=== PATIENT | male | born 1935 | race Caucasian/White ===

== ENCOUNTER → 2016-08-22 | Outpatient (CLI) | payer MEDICARE, BC ==
[2016-08-22 14:54] LABS: Blood Urea Nitrogen 14 mg/dL (9-20); Lithium 0.6 mmol/L; Non-African American GFR(MDRD) >60 (>60 ml/min/1.73 sqM)
== END | disposition home or self-care (01) ==
LOC: LABWHC1 10:53
PROVIDERS: ATTEND Psychiatry & Neurology Psychiatry
DX: F31.74 Bipolar disorder, in full remission, most recent episode manic (principal)
CPT/HCPCS: 36415; 80178; 82565; 84443; 84520

== ENCOUNTER → 2016-11-23 | Outpatient (CLI) | payer MEDICARE, BC | END | disposition home or self-care (01) | LOC: LABWHC1 11:06 | PROVIDERS: ATTEND Psychiatry & Neurology Psychiatry | DX: F31.74 Bipolar disorder, in full remission, most recent episode manic (principal) | CPT/HCPCS: 36415; 80178 ==

== ENCOUNTER → 2017-05-17 | Outpatient (CLI) | payer MEDICARE, BC | END | disposition home or self-care (01) | LOC: LABWHC1 10:45 | PROVIDERS: ATTEND Urology | DX: R97.20 Elevated prostate specific antigen [PSA] (principal) | CPT/HCPCS: 36415; 84153 ==

== ENCOUNTER 2017-05-21 00:03 | Inpatient (IN) | payer MEDICARE, BC ==
[2017-05-21] MEDS ORDERED: SODIUM CHLORIDE 0.9% 1,000 ML IV STA (00:18)
[2017-05-21] MEDS ORDERED: METOCLOPRAMIDE 5 MG/ML 2 ML VIAL IVP STA (00:18)
[2017-05-21] MEDS ORDERED: RX INFO: IV CONTRAST WAS GIVEN 1 EACH MISC MISCELLANE PRN (00:19)
[2017-05-21] MEDS ORDERED: DICYCLOMINE 20 MG TAB PO STA (00:19)
[2017-05-21 00:33] LABS: Basophils # (A) 0.1 k/uL (0-0.2); Basophils % (A) 1 %; Eosinophils # (A) 0.2 k/uL (0-0.7); Eosinophils % (A) 2 %; HCT 29.2 % (39.0-53.0); HGB 9.5 gm/dL (13.0-17.5); Lymphocytes # (A) 1.1 k/uL (1.0-4.8); Lymphocytes % (A) 10 %; MCH 31.8 pg (25.0-35.0); MCHC 32.5 g/dL (31.0-37.0); MCV 97.7 fL (80.0-100.0); Mean Platelet Volume 6.9; Monocytes # (A) 0.4 k/uL (0-1.0); Monocytes % (A) 4 %; Neutrophils # (A) 8.9 k/uL (1.3-7.7); Neutrophils % (A) 82 %; Platelet Count 320 k/uL (150-450); RBC 2.99 m/uL (4.30-5.90); RDW 13.3 % (11.5-15.5); WBC 10.9 k/uL (3.8-10.6)
[2017-05-21 00:42] LABS: ALT 86 U/L (21-72); AST 41 U/L (17-59); Alkaline Phosphatase 94 U/L (38-126); Amylase <30 U/L (30-110); Anion Gap 7 mmol/L; Blood Urea Nitrogen 23 mg/dL (9-20); Calcium 8.7 mg/dL (8.4-10.2); Carbon Dioxide 26 mmol/L (22-30); Chloride 104 mmol/L (98-107); Glucose 165 mg/dL (74-99); Lipase 77 U/L (23-300); Potassium 4.5 mmol/L (3.5-5.1); Sodium 137 mmol/L (137-145); Total Bilirubin 0.3 mg/dL (0.2-1.3); Total Protein 4.9 g/dL (6.3-8.2)
--- NOTE | 2017-05-21 01:48 | CT ---
EXAM: CT Abdomen and Pelvis With Intravenous Contrast CLINICAL HISTORY: Reason: Pain TECHNIQUE: Axial computed tomography images of the abdomen and pelvis with intravenous contrast. CTDI is 10.8 mGy and DLP is 850.7 mGy-cm. This CT exam was performed using one or more of the following dose reduction techniques: automated exposure control, adjustment of the mA and/or kV according to patient size, and/or use of iterative reconstruction technique. Coronal and sagittal reformatted images were created and reviewed. COMPARISON: No relevant prior studies available. FINDINGS: Lower thorax: 5 mm ovoid nodularity within the subpleural right lower lung lobe. ABDOMEN: Liver: Scattered hepatic hypodensities, likely representing metastatic lesions, with slightly infiltrative appearance in the left lobe. Gallbladder and bile ducts: Majority of the pancreatic parenchyma is atrophic, with ductal dilatation to an area of ill-defined hypo-density at the pancreatic head, concerning for mass. This process narrows the celiac trunk and proximal branches and partially encases the superior mesenteric artery. Approximate size is 3.0 x 2.9 cm. Likely involvement of the adjacent duodenal wall. Component of biliary obstruction is also likely present with dilatation up to 14 mm guarding the common bile duct. No calcified stones. Pancreas: See above. Spleen: Unremarkable. No splenomegaly. Adrenals: Unremarkable. No mass. Kidneys and ureters: Unremarkable. No solid mass. No hydronephrosis. Stomach and bowel: Colonic diverticulosis. No evidence for acute diverticulitis at this time. Segments of mild colonic wall thickening are likely related to peristalsis and associated underdistention. No evidence for small bowel obstruction. Appendix: No findings to suggest acute appendicitis. PELVIS: Bladder: Prostate enlargement to a transverse length of 6.3 cm. This protrudes into the inferior/posterior urinary bladder, with adjacent bladder wall thickening. Reproductive: See above. ABDOMEN and PELVIS: Intraperitoneal space: Unremarkable. No free air. No significant fluid collection. Bones/joints: S-shaped scoliosis of the spine with multilevel disc space height loss and osteophytosis. Vertebral hemangiomas. No acute fracture. No dislocation. Soft tissues: Unremarkable. Vasculature: See above. Lymph nodes: Unremarkable. No enlarged lymph nodes. IMPRESSION: 1. Ill-defined hypoattenuating lesion associated with the pancreatic head as above, most concerning for adenocarcinoma, with upstream pancreatic ductal dilatation and printable atrophy. There is also likely component of obstruction of the common bile duct. Multifocal hepatic lesions could represent component of metastatic disease. This appears to involve the adjacent duodenal wall. 2. Urinary bladder wall thickening, possibly related to prominent prostate enlargement. 3. 5 mm right lower lung nodule may represent focal scarring, less likely metastatic disease. 4. Other nonacute findings as above.
--- NOTE | 2017-05-21 01:49 | ED ---
General Adult HPI - General Chief complaint: Abdominal Pain Stated complaint: belly pain Time Seen by Provider: 05/21/17 00:06 Source: patient, EMS, RN notes reviewed Mode of arrival: EMS Limitations: no limitations - History of Present Illness Initial comments: This is an 82-year-old male presents emergency Department with chief complaint of abdominal discomfort and nausea. Patient states his been having some ongoing abdominal issues and states that he's had problems with bloating and gas and diffuse abdominal pain. He states occasionally he has to take some sore water and shot of Erasto she states he normally helps. He states today he went to go do this but became diaphoretic and slightly dizzy and had sit down. Patient states that he still feels gassy but denies any chest pain, shortness breath, headache or focal weakness. Patient states he was no schedule an appointment with Dr. aSnta MEJÍA on Monday states that he is did not feel right receiving felt the need coming. Patient denies any rectal bleeding, melena she' s a. Denies any dysuria hematuria. He's had no prior abdominal surgeries. - Related Data Allergies Allergy/AdvReac Type Severity Reaction Status Date / Time No Known Allergies Allergy Verified 05/21/17 00:14 Review of Systems ROS Statement: Those systems with pertinent positive or pertinent negative responses have been documented in the HPI. ROS Other: All systems not noted in ROS Statement are negative. Past Medical History Past Medical History: No Reported History Additional Past Medical History / Comment(s): Pericarditis History of Any Multi-Drug Resistant Organisms: None Reported Past Surgical History: No Surgical Hx Reported Past Psychological History: Bipolar Smoking Status: Never smoker Past Alcohol Use History: None Reported Past Drug Use History: None Reported General Exam Limitations: no limitations General appearance: alert, in no apparent distress Head exam: Present: atraumatic, normocephalic, normal inspection Neck exam: Present: normal inspection, full ROM. Absent: tenderness, meningismus, lymphadenopathy Respiratory exam: Present: normal lung sounds bilaterally. Absent: respiratory distress, wheezes, rales, rhonchi, stridor Cardiovascular Exam: Present: regular rate, normal rhythm, normal heart sounds. Absent: systolic murmur, diastolic murmur, rubs, gallop, clicks GI/Abdominal exam: Present: soft, tenderness (Mild diffuse), normal bowel sounds. Absent: distended, guarding, rebound, rigid Back exam: Absent: CVA tenderness (R), CVA tenderness (L) Neurological exam: Present: alert, oriented X3, CN II-XII intact, reflexes normal. Absent: motor sensory deficit Skin exam: Present: warm, dry, intact, normal color. Absent: rash Course Vital Signs 05/21/17 05/21/17 00:09 01:33 Temperature 98.4 F 97.5 F L Pulse Rate 98 100 Respiratory 18 18 Rate Blood Pressure 131/74 112/59 O2 Sat by Pulse 100 99 Oximetry Medical Decision Making - Lab Data Result diagrams: 05/21/17 00:20 05/21/17 00:20 Lab Results 05/21/17 05/21/17 05/21/17 Range/Units 00:20 00:20 00:20 WBC 10.9 H (3.8-10.6) k/uL RBC 2.99 L (4.30-5.90) m/uL Hgb 9.5 L (13.0-17.5) gm/dL Hct 29.2 L (39.0-53.0) % MCV 97.7 (80.0-100.0) fL MCH 31.8 (25.0-35.0) pg MCHC 32.5 (31.0-37.0) g/dL RDW 13.3 (11.5-15.5) % Plt Count 320 (150-450) k/uL Neutrophils % 82 % Lymphocytes % 10 % Monocytes % 4 % Eosinophils % 2 % Basophils % 1 % Neutrophils # 8.9 H (1.3-7.7) k/uL Lymphocytes # 1.1 (1.0-4.8) k/uL Monocytes # 0.4 (0-1.0) k/uL Eosinophils # 0.2 (0-0.7) k/uL Basophils # 0.1 (0-0.2) k/uL Sodium 137 (137-145) mmol/L Potassium 4.5 (3.5-5.1) mmol/L Chloride 104 (98-107) mmol/L Carbon Dioxide 26 (22-30) mmol/L Anion Gap 7 mmol/L BUN 23 H (9-20) mg/dL Creatinine 0.90 (0.66-1.25) mg/dL Est GFR (MDRD) Af Amer >60 (>60 ml/min/1.73 sqM) Est GFR (MDRD) Non-Af >60 (>60 ml/min/1.73 sqM) Glucose 165 H (74-99) mg/dL Calcium 8.7 (8.4-10.2) mg/dL Total Bilirubin 0.3 (0.2-1.3) mg/dL AST 41 (17-59) U/L ALT 86 H (21-72) U/L Alkaline Phosphatase 94 (38-126) U/L Troponin I 0.018 (0.000-0.034) ng/mL Total Protein 4.9 L (6.3-8.2) g/dL Albumin 3.0 L (3.5-5.0) g/dL Amylase <30 L (30-110) U/L Lipase 77 (23-300) U/L Urine Color Urine Appearance (Clear) Urine pH (5.0-8.0) Ur Specific [place] (1.001-1.035) Urine Protein (Negative) Urine Glucose (UA) (Negative) Urine Ketones (Negative) Urine Blood (Negative) Urine Nitrite (Negative) Urine Bilirubin (Negative) Urine Urobilinogen (<2.0) mg/dL Ur Leukocyte Esterase (Negative) 05/21/17 Range/Units 01:50 WBC (3.8-10.6) k/uL RBC (4.30-5.90) m/uL Hgb (13.0-17.5) gm/dL Hct (39.0-53.0) % MCV (80.0-100.0) fL MCH (25.0-35.0) pg MCHC (31.0-37.0) g/dL RDW (11.5-15.5) % Plt Count (150-450) k/uL Neutrophils % % Lymphocytes % % Monocytes % % Eosinophils % % Basophils % % Neutrophils # (1.3-7.7) k/uL Lymphocytes # (1.0-4.8) k/uL Monocytes # (0-1.0) k/uL Eosinophils # (0-0.7) k/uL Basophils # (0-0.2) k/uL Sodium (137-145) mmol/L Potassium (3.5-5.1) mmol/L Chloride (98-107) mmol/L Carbon Dioxide (22-30) mmol/L Anion Gap mmol/L BUN (9-20) mg/dL Creatinine (0.66-1.25) mg/dL Est GFR (MDRD) Af Amer (>60 ml/min/1.73 sqM) Est GFR (MDRD) Non-Af (>60 ml/min/1.73 sqM) Glucose (74-99) mg/dL Calcium (8.4-10.2) mg/dL Total Bilirubin (0.2-1.3) mg/dL AST (17-59) U/L ALT (21-72) U/L Alkaline Phosphatase (38-126) U/L Troponin I (0.000-0.034) ng/mL Total Protein (6.3-8.2) g/dL Albumin (3.5-5.0) g/dL Amylase (30-110) U/L Lipase (23-300) U/L Urine Color Light Yellow Urine Appearance Clear (Clear) Urine pH 6.0 (5.0-8.0) Ur Specific [place] 1.018 (1.001-1.035) Urine Protein Negative (Negative) Urine Glucose (UA) Negative (Negative) Urine Ketones Negative (Negative) Urine Blood Negative (Negative) Urine Nitrite Negative (Negative) Urine Bilirubin Negative (Negative) Urine Urobilinogen <2.0 (<2.0) mg/dL Ur Leukocyte Esterase Negative (Negative) Disposition Clinical Impression: Pancreatic mass, Abdominal pain, Nausea, Anemia Disposition: ADMITTED IP TO THIS [facility] Condition: Fair Referrals: Travis Williamson MD [Primary Care Provider] - 1-2 days Time of Disposition: 02:19
--- NOTE | 2017-05-21 01:51 | XR ---
EXAM: XR Chest, 2 Views CLINICAL HISTORY: Reason: abdominal pain TECHNIQUE: Frontal and lateral views of the chest. COMPARISON: No relevant prior studies available. FINDINGS: Lungs: Left lower lobe atelectasis. Pleural space: Unremarkable. No pneumothorax. Heart: Cardiac shadow size within normal limits. Mediastinum: Unremarkable. Bones/joints: Multilevel disc space height loss and mild osteophytosis regarding the thoracic spine. Vasculature: Atherosclerosis of the aortic knob. IMPRESSION: 1. No acute findings radiographically.
[2017-05-21 02:03] LABS: Appearance,Urine Clear (Clear); Bilirubin,Urine Negative (Negative); Blood,Urine Negative (Negative); Color,Urine Light Yellow; Glucose,Urine (UA) Negative (Negative); Ketones,Urine Negative (Negative); Leukocyte Esterase,Urine Negative (Negative); Nitrite,Urine Negative (Negative); Protein,Urine Negative (Negative); Specific Gravity,Urine 1.018 (1.001-1.035); Urobilinogen,Urine <2.0 mg/dL (<2.0)
[2017-05-21] MEDS ORDERED: ACETAMINOPHEN TAB 325 MG TAB PO PRN (02:20)
[2017-05-21] MEDS ORDERED: NALOXONE 0.4 MG/ML 1 ML VIAL IV PRN (02:20)
[2017-05-21] MEDS: ONDANSETRON 4 MG/2 ML VIAL IVP PRN ×3 (04:13→23:52)
[2017-05-21] MEDS ORDERED: SODIUM CHLORIDE 0.9% 500 ML IV ONE (05:04)
[2017-05-21 05:59] LABS: Glucose,Whole Blood 157 mg/dL (75-99)
[2017-05-21 06:11] VITALS: BMI 25.1
[2017-05-21 07:22] LABS: Basophils # (A) 0.1 k/uL (0-0.2); Basophils % (A) 1 %; Eosinophils % (A) 0 %; HCT 23.6 % (39.0-53.0); Lymphocytes # (A) 0.8 k/uL (1.0-4.8); Lymphocytes % (A) 7 %; MCH 30.7 pg (25.0-35.0); MCHC 30.7 g/dL (31.0-37.0); MCV 100.1 fL (80.0-100.0); Macrocytosis Slight; Mean Platelet Volume 7.3; Monocytes # (A) 0.4 k/uL (0-1.0); Monocytes % (A) 4 %; Neutrophils # (A) 9.4 k/uL (1.3-7.7); Neutrophils % (A) 87 %; Platelet Count 289 k/uL (150-450); RBC 2.36 m/uL (4.30-5.90); RDW 14.8 % (11.5-15.5); WBC 10.8 k/uL (3.8-10.6)
[2017-05-21 07:37] LABS: ALT 75 U/L (21-72); AST 35 U/L (17-59); Albumin 2.5 g/dL (3.5-5.0); Alkaline Phosphatase 76 U/L (38-126); Anion Gap 3 mmol/L; Blood Urea Nitrogen 30 mg/dL (9-20); Calcium 8.5 mg/dL (8.4-10.2); Carbon Dioxide 27 mmol/L (22-30); Chloride 109 mmol/L (98-107); Glucose 158 mg/dL (74-99); Magnesium 2.1 mg/dL (1.6-2.3); Phosphorus 3.3 mg/dL (2.5-4.5); Potassium 5.5 mmol/L (3.5-5.1); Sodium 139 mmol/L (137-145); Total Bilirubin 0.2 mg/dL (0.2-1.3); Total Protein 4.3 g/dL (6.3-8.2)
[2017-05-21 07:38] LABS: HGB 7.2 gm/dL (13.0-17.5)
[2017-05-21] MEDS: FOLIC ACID 1 MG TAB PO SCH (11:03)
[2017-05-21] MEDS: FINASTERIDE 5 MG TAB PO SCH (11:03)
[2017-05-21] MEDS: LITHIUM CARBONATE ER 450 MG TABLET.ER PO SCH ×2 (11:03→21:25)
[2017-05-21] MEDS: PANTOPRAZOLE 40 MG/10 ML VIAL IVP SCH (11:32)
[2017-05-21] MEDS: HEPARIN SODIUM,PORCINE 5,000 UNIT/ML 1 ML VIAL SQ SCH ×3 (11:33→23:23)
[2017-05-21 13:21] LABS: Basophils % (A) 0 %; Eosinophils % (A) 0 %; HCT 20.5 % (39.0-53.0); Lymphocytes % (A) 9 %; MCH 31.8 pg (25.0-35.0); MCHC 32.2 g/dL (31.0-37.0); MCV 98.6 fL (80.0-100.0); Mean Platelet Volume 7.2; Monocytes # (A) 0.6 k/uL (0-1.0); Monocytes % (A) 5 %; Neutrophils # (A) 9.7 k/uL (1.3-7.7); Neutrophils % (A) 84 %; Platelet Count 285 k/uL (150-450); RBC 2.08 m/uL (4.30-5.90); RDW 13.9 % (11.5-15.5); WBC 11.4 k/uL (3.8-10.6)
[2017-05-21 13:27] LABS: HGB 6.6 gm/dL (13.0-17.5)
--- NOTE | 2017-05-21 14:37 | P.CNPUL ---
History of Present Illness Consult date: 05/21/17 Chief complaint: GIB History of present illness: A healthy 82-year-old male patient who presented to the burst department yesterday with complaints of vague abdominal discomfort and some nausea. Noted the patient has been having these symptoms for quite some time and the patient has lost probably 25-30 pounds. He was having also some symptoms of bloating and gas and for that reason he came into the emergency department. He also stated that he had a bout of bright red blood per rectum on the day of admission during which she became quite diaphoretic and dizzy. No hematemesis. No chest pain. No syncope. No history of any alcoholism. No intake of anticoagulants or aspirin or nonsteroidal anti-inflammatory medications. The patient has undergone colonoscopy by Dr. Cantu and he was told that there was no need for further scoping as the patient has become above 80. No previous pathology has been identified and previous colonoscopies. CAT scan of the abdomen was done in the emergency department and the patient was found to have a ill-defined hypodensity at the pancreatic head concerning of a mass. This process narrows the celiac trunk and proximal branches and partially encases the superior mesenteric artery. Approximate size was 3 x 2.9 cm. There is also likely involvement of the adjacent duodenal wall. Component of biliary obstruction is also felt to be likely with dilatation of the bile duct up to 14 mm. No calcified stones. Multiple hepatic lesions could also represent a component of metastatic disease. Review of Systems Constitutional: Reports fatigue, Reports weakness, Reports weight loss Eyes: denies blurred vision, denies bulging eye, denies decreased vision Ears: deny: decreased hearing, ear discharge, earache Ears, nose, mouth and throat: Denies headache, Denies sore throat Cardiovascular: Denies chest pain, Denies shortness of breath Respiratory: Denies cough Gastrointestinal: Reports abdominal pain, Reports BRBPR, Reports loss of appetite, Reports nausea Genitourinary: Reports as per HPI Musculoskeletal: Denies myalgias Musculoskeletal: absent: ankle pain, ankle stiffness, ankle swelling Integumentary: Denies pruritus, Denies rash Neurological: Denies numbness, Denies weakness Psychiatric: Denies anxiety, Denies depression Endocrine: Denies fatigue, Denies weight change Past Medical History Past Medical History: Hyperlipidemia, Prostate Disorder Additional Past Medical History / Comment(s): history of Pericarditis, bipolar disorder History of Any Multi-Drug Resistant Organisms: None Reported Past Surgical History: No Surgical Hx Reported Past Anesthesia/Blood Transfusion Reactions: No Reported Reaction Past Psychological History: Bipolar Smoking Status: Never smoker Past Alcohol Use History: None Reported Past Drug Use History: None Reported Medications and Allergies Home Medications Medication Instructions Recorded Confirmed Type Finasteride [Proscar] 5 mg PO DAILY 05/21/17 05/21/17 History Folic Acid [Folic Acid] 1 mg PO DAILY 05/21/17 05/21/17 History [place] Carbonate [[place] 450 mg PO BID 05/21/17 05/21/17 History Carbonate ER] Simvastatin Unkown 20 mg PO TUTHSA 05/21/17 05/21/17 History Allergies Allergy/AdvReac Type Severity Reaction Status Date / Time No Known Allergies Allergy Verified 05/21/17 08:15 Physical Exam Vitals: Vital Signs Temp Pulse Resp BP Pulse Ox 05/21/17 09:00 97.9 F 87 18 90/48 99 05/21/17 08:00 87 19 89/49 94 L 05/21/17 07:00 86 19 90/54 92 L 05/21/17 06:30 92 16 122/73 97 05/21/17 06:10 97.7 F 94 24 122/73 95 05/21/17 05:18 88 18 111/70 99 05/21/17 03:59 95 18 101/61 98 05/21/17 02:51 97.9 F 94 18 114/69 97 05/21/17 01:33 97.5 F L 100 18 112/59 99 05/21/17 00:09 98.4 F 98 18 131/74 100 Intake and Output 05/20/17 05/21/17 05/21/17 22:59 06:59 14:59 Intake Total 30 Output Total 350 Balance 30 -350 Intake: Oral 30 Output: Urine 350 Other: # Voids 0 Weight 86.4 kg The patient appeared well nourished and normally developed. Vital signs as documented. Head exam is unremarkable. No scleral icterus or corneal arcus noted. Neck is without jugular venous distension, thyromegaly, or carotid bruits. Carotid upstrokes are brisk bilaterally. Lungs are clear to auscultation and percussion. Cardiac exam reveals the PMI to be normally sized and situated. Rhythm is regular. First and second heart sounds normal. No murmurs, rubs or gallops. Abdominal exam reveals normal bowel sounds, no masses , no organomegaly and no aortic enlargement. Extremities are nonedematous and both femoral and pedal pulses are normal.Examination of the skin revealed no evidence of significant rashes, suspicious appearing nevi or other concerning lesions. Neurologically the patient is awake and alert and there is no focal neurological deficit at this point Results - Laboratory Findings CBC and BMP: 05/21/17 12:56 05/21/17 07:07 Abnormal lab findings: Abnormal Labs 05/21/17 05/21/17 05/21/17 00:20 00:20 05:57 WBC 10.9 H RBC 2.99 L Hgb 9.5 L Hct 29.2 L MCV MCHC Neutrophils # 8.9 H Lymphocytes # Potassium Chloride BUN 23 H Glucose 165 H POC Glucose (mg/dL) 157 H ALT 86 H Total Protein 4.9 L Albumin 3.0 L Amylase <30 L 05/21/17 05/21/17 07:07 07:07 WBC 10.8 H RBC 2.36 L Hgb 7.2 L D Hct 23.6 L MCV 100.1 H MCHC 30.7 L Neutrophils # 9.4 H Lymphocytes # 0.8 L Potassium 5.5 H Chloride 109 H BUN 30 H Glucose 158 H POC Glucose (mg/dL) ALT 75 H Total Protein 4.3 L Albumin 2.5 L Amylase Assessment and Plan Plan: Assessment 1 acute GI bleeding. The patient had significant drop in hemoglobin and subsequent follow-up on the hemoglobin level showed a drop from 9.5 down to 6.6 and the patient will need to be transfused with 2 units of packed RBCs. 2 pancreatic head mass with possible involvement of the proximal duodenum and a component of, bile duct obstruction. This could be potentially the source of bleeding at the level of the proximal duodenum. No clinical evidence of biliary obstruction and the liver function tests including the alkaline phosphatase and the bilirubin are not elevated. Nevertheless, these findings, along with the presence of hepatic lesions, are concerning for metastatic pancreatic cancer 3 vague abdominal pain/weight loss, probably due to her underlying malignancy/ pancreatic lesion/cancer 4 bipolar disorder maintained on lithium 5 hyperlipidemia 6 BPH Plan We'll check CA-19-9. Check CEA. Consult gastroenterology for endoscopy both upper and lower. Upper endoscopy may reveal some abnormalities at the level of the duodenum and this could be potentially a and diagnostic and therapeutic colonoscopy and EGD. At the same time, the patient may need to be considered for ERCP if the finding of EGD does not show any acute abnormalities. Monitor hemoglobin. Transfuse the patient with 2 units of packed RBCs. May need oncology consultation at a later stage. Monitor hemodynamics and blood pressure. We'll continue following up this patient and the patient be kept in ICU for another 24 hours. GI is on consult.
[2017-05-21] MEDS: SODIUM CHLORIDE 0.9% 1,000 ML IV SCH (15:06)
--- NOTE | 2017-05-21 15:57 | P.HPIM ---
History of Present Illness H&P Date: 05/21/17 Chief Complaint: abdominal pain This is a 22 years old male with past medical history significant for bipolar disorder presented to the emergency department with nausea abdominal pain and generalized weakness. Patient stated that he was seen by his primary care physician back in March when he was complaining go is abdominal distention and discomfort but no pain at that time patient stated that he was trying to treated with anti-gas medication and that caused him some relief of his pain and patient did not seek further attention as he stated that his symptoms keep coming in going back and forth patient to presented to the hospital yesterday with intractable nausea but no vomiting abdominal discomfort and distention and he was dizzy and lightheaded initial evaluation in the emergency room revealed abdominal distention but no acute abdomen computed tomography scan was ordered which was positive for possible pancreatic mass with metastasis patient was admitted for further evaluation especially with low hemoglobin. Patient was admitted to the intensive care unit currently seems to be dizzy lightheaded though with stable vital signs patient had the large bowel movement in the emergency department which was positive for arianne red blood and stated that he never had this issue before patient was seen by the GI multiple times in the past for multiple endoscopies the old revealed normal finding in the past and patient denied any history of bleed in the past. Patient denied caretaking any blood thinner at home and stated that his been in his regular state of health when he is independent in all his daily activity and still driving his own car patient takes lithium for his bipolar disorder and stated that his been maintained for 20 years on the same drug at the bedside with multiple concerns and questions were addressed at the bedside in the presence of the nursing staff Review of Systems Patient admitted losing weight and he thinks he lost 10 pounds in the last 3 month and has significant decrease in his appetite All 14 systems reviewed and negative except as above Past Medical History Past Medical History: Hyperlipidemia, Prostate Disorder Additional Past Medical History / Comment(s): history of Pericarditis, bipolar disorder History of Any Multi-Drug Resistant Organisms: None Reported Past Surgical History: No Surgical Hx Reported Past Anesthesia/Blood Transfusion Reactions: No Reported Reaction Past Psychological History: Bipolar Smoking Status: Never smoker Past Alcohol Use History: None Reported Past Drug Use History: None Reported Medications and Allergies Home Medications Medication Instructions Recorded Confirmed Type Finasteride [Proscar] 5 mg PO DAILY 05/21/17 05/21/17 History Folic Acid [Folic Acid] 1 mg PO DAILY 05/21/17 05/21/17 History [employer] Carbonate [[employer] 450 mg PO BID 05/21/17 05/21/17 History Carbonate ER] Simvastatin Unkown 20 mg PO TUTHSA 05/21/17 05/21/17 History Allergies Allergy/AdvReac Type Severity Reaction Status Date / Time No Known Allergies Allergy Verified 05/21/17 08:15 Physical Exam Vitals: Vital Signs Temp Pulse Resp BP Pulse Ox 05/21/17 15:00 105 H 18 119/66 97 05/21/17 14:00 93 18 131/68 97 05/21/17 13:00 104 H 21 107/60 99 05/21/17 12:00 93 19 104/53 99 05/21/17 11:00 106 H 22 121/58 98 05/21/17 10:00 91 20 107/56 97 05/21/17 09:00 97.9 F 87 18 90/48 99 05/21/17 08:00 87 19 89/49 94 L 05/21/17 07:00 86 19 90/54 92 L 05/21/17 06:30 92 16 122/73 97 05/21/17 06:10 97.7 F 94 24 122/73 95 05/21/17 05:18 88 18 111/70 99 05/21/17 03:59 95 18 101/61 98 05/21/17 02:51 97.9 F 94 18 114/69 97 05/21/17 01:33 97.5 F L 100 18 112/59 99 05/21/17 00:09 98.4 F 98 18 131/74 100 Intake and Output 05/21/17 05/21/17 05/21/17 06:59 14:59 22:59 Intake Total 30 340 75 Output Total 650 350 Balance 30 -310 -275 Intake: Intake, IV Titration 75 Amount Sodium Chloride 0.9% 1, 75 000 ml @ 75 mls/hr IV . [id number] KAMINI Rx#:[id number] Oral 30 340 Output: Urine 650 350 Other: # Voids 0 # Bowel Movements 1 Weight 86.4 kg - Constitutional General appearance: mild distress - EENT Eyes: PERRLA ENT: normal oropharynx - Neck Neck: normal ROM - Respiratory Respiratory: bilateral: CTA - Cardiovascular Heart sounds: normal: S1, S2 - Gastrointestinal General gastrointestinal: distended, normal bowel sounds, soft - Integumentary Integumentary: pale - Neurologic Neurologic: CNII-XII intact - Musculoskeletal Musculoskeletal: gait normal - Psychiatric Psychiatric: A&O x's 3 Results CBC & Chem 7: 05/21/17 12:56 05/21/17 07:07 Labs: Abnormal Lab Results - Last 24 Hours (Table) 05/21/17 05/21/17 05/21/17 Range/Units 00:20 00:20 05:57 WBC 10.9 H (3.8-10.6) k/uL RBC 2.99 L (4.30-5.90) m/uL Hgb 9.5 L (13.0-17.5) gm/dL Hct 29.2 L (39.0-53.0) % MCV (80.0-100.0) fL MCHC (31.0-37.0) g/dL Neutrophils # 8.9 H (1.3-7.7) k/uL Lymphocytes # (1.0-4.8) k/uL Potassium (3.5-5.1) mmol/L Chloride (98-107) mmol/L BUN 23 H (9-20) mg/dL Glucose 165 H (74-99) mg/dL POC Glucose (mg/dL) 157 H (75-99) mg/dL ALT 86 H (21-72) U/L Total Protein 4.9 L (6.3-8.2) g/dL Albumin 3.0 L (3.5-5.0) g/dL Amylase <30 L (30-110) U/L 05/21/17 05/21/17 05/21/17 Range/Units 07:07 07:07 12:56 WBC 10.8 H 11.4 H (3.8-10.6) k/uL RBC 2.36 L 2.08 L (4.30-5.90) m/uL Hgb 7.2 L D 6.6 L* (13.0-17.5) gm/dL Hct 23.6 L 20.5 L (39.0-53.0) % MCV 100.1 H (80.0-100.0) fL MCHC 30.7 L (31.0-37.0) g/dL Neutrophils # 9.4 H 9.7 H (1.3-7.7) k/uL Lymphocytes # 0.8 L (1.0-4.8) k/uL Potassium 5.5 H (3.5-5.1) mmol/L Chloride 109 H (98-107) mmol/L BUN 30 H (9-20) mg/dL Glucose 158 H (74-99) mg/dL POC Glucose (mg/dL) (75-99) mg/dL ALT 75 H (21-72) U/L Total Protein 4.3 L (6.3-8.2) g/dL Albumin 2.5 L (3.5-5.0) g/dL Amylase (30-110) U/L Thrombosis Risk Factor Assmnt - DVT/VTE Prophylaxis DVT/VTE Prophylaxis: Contraindicated - See note (Patient with lower GI bleed) - Choose All That Apply Any of the Below Risk Factors Present?: Yes Each Factor Represents 1 point: Medical pt on bed rest Other Risk Factors: Yes Each Risk Factor Represents 2 Points: Malignancy Each Risk Factor Represents 3 Points: Age 75 years or older Thrombosis Risk Factor Assessment Total Risk Factor Score: 6 Thrombosis Risk Factor Assessment Level: High Risk Assessment and Plan Plan: 1. Abdominal pain likely related to pancreatic mass. 2. 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 3. Acute blood loss anemia secondary to lower GI bleed. 4. An intentional weight loss. 5. Generalized weakness and dizziness. 6. Bipolar disorder. 7. Prostate hyperplasia. 8. Bipolar disorder. Plan discussed with the patient and her at length with GI was consulted to would like to perform EGD given the finding of GI bleed and colonoscopy is possibility based on the evaluation will keep patient's nothing by mouth after midnight continue with clear liquid diet at this point transfused 2 units of blood as soon as possible started patient's on normal saline at 75 mL/h monitor his vital signs closely and consider fluid boluses based on vital signs and mental status plan discussed with the patient and the nursing staff at length and I would like to continue Protonix IV twice daily patient would benefit from hematology oncology consult and possible CT-guided biopsy for his pancreatic mass versus other diagnostics need to be determined by hematology oncology. Prognosis remained guarded
--- NOTE | 2017-05-21 18:25 | XR ---
EXAMINATION TYPE: XR chest 1V portable DATE OF EXAM: 05/21/2017 CLINICAL HISTORY: NG tube placement. TECHNIQUE: Single AP portable upright view of the chest is obtained. COMPARISON: Chest x-ray from earlier today FINDINGS: There is new nasogastric tube coiled in stomach. There is persistent left basilar linear s carring and/or atelectasis. Right lung remains clear. Cardiac silhouette size is stable within normal limits with atherosclerotic thoracic aorta. Osseous structures are intact. IMPRESSION: New nasogastric tube in satisfactory position. Other findings stable.
[2017-05-21] MEDS: METOCLOPRAMIDE 5 MG/ML 2 ML VIAL IVP PRN (19:40)
[2017-05-21 21:01] LABS: HCT 23.4 % (39.0-53.0); HGB 7.8 gm/dL (13.0-17.5); MCH 31.1 pg (25.0-35.0); MCHC 33.2 g/dL (31.0-37.0); MCV 93.8 fL (80.0-100.0); Mean Platelet Volume 6.8; Platelet Count 217 k/uL (150-450); RBC 2.49 m/uL (4.30-5.90); RDW 15.3 % (11.5-15.5)
[2017-05-21 23:29] LABS: Anisocytosis Slight; HCT 22.6 % (39.0-53.0); HGB 7.6 gm/dL (13.0-17.5); MCH 31.4 pg (25.0-35.0); MCHC 33.4 g/dL (31.0-37.0); MCV 93.9 fL (80.0-100.0); Mean Platelet Volume 7.6; Platelet Count 220 k/uL (150-450); RBC 2.41 m/uL (4.30-5.90); RDW 16.2 % (11.5-15.5)
[2017-05-21] MEDS: MORPHINE SULFATE 5 MG/ML SYRINGE IVP PRN (23:52)
[2017-05-22 04:45] LABS: INR 1.3 (<1.2); Partial Thromboplastin Time 23.6 sec (22.0-30.0)
[2017-05-22 04:46] LABS: ALT 59 U/L (21-72); AST 25 U/L (17-59); Albumin 2.2 g/dL (3.5-5.0); Alkaline Phosphatase 60 U/L (38-126); Anion Gap 6 mmol/L; Blood Urea Nitrogen 43 mg/dL (9-20); Calcium 8.3 mg/dL (8.4-10.2); Carbon Dioxide 21 mmol/L (22-30); Chloride 111 mmol/L (98-107); Glucose 171 mg/dL (74-99); Magnesium 2.2 mg/dL (1.6-2.3); Phosphorus 4.4 mg/dL (2.5-4.5); Potassium 4.8 mmol/L (3.5-5.1); Sodium 138 mmol/L (137-145); Total Bilirubin 0.3 mg/dL (0.2-1.3); Total Protein 3.8 g/dL (6.3-8.2)
[2017-05-22 05:06] LABS: Basophils # (A) 0.1 k/uL (0-0.2); Basophils % (A) 0 %; Eosinophils % (A) 0 %; Lymphocytes # (A) 1.4 k/uL (1.0-4.8); Lymphocytes % (A) 8 %; MCH 30.5 pg (25.0-35.0); MCHC 32.3 g/dL (31.0-37.0); MCV 94.5 fL (80.0-100.0); Mean Platelet Volume 7.6; Monocytes # (A) 0.8 k/uL (0-1.0); Monocytes % (A) 4 %; Neutrophils % (A) 87 %; Platelet Count 231 k/uL (150-450); RBC 2.09 m/uL (4.30-5.90); RDW 15.8 % (11.5-15.5); WBC 18.5 k/uL (3.8-10.6)
[2017-05-22 05:16] LABS: HGB 6.4 gm/dL (13.0-17.5)
[2017-05-22 05:17] LABS: HCT 19.8 % (39.0-53.0)
[2017-05-22] MEDS: METOCLOPRAMIDE 5 MG/ML 2 ML VIAL IVP PRN (06:23)
[2017-05-22] MEDS: SODIUM CHLORIDE 0.9% 1,000 ML IV SCH (06:23)
--- NOTE | 2017-05-22 07:53 | P.CONS ---
History of Present Illness - Reason for Consult Consult date: 05/21/17 Pancreatic mass - History of Present Illness This is an 82-year-old male presents emergency Department with chief complaint of abdominal discomfort and nausea. Patient states his been having some ongoing abdominal issues and states that he's had problems with bloating and gas and diffuse abdominal pain. The patient reported feeling diaphoretic and dizzy and reported passing Dark and bloody bowel movements prior to and since admission. CT of the abdomen raised the possibility of a mass in the head of the pancreas and possible duodenal involvement. Review of Systems 12 point review of systems is, otherwise, not revealing Past Medical History Past Medical History: Hyperlipidemia, Prostate Disorder Additional Past Medical History / Comment(s): history of Pericarditis, bipolar disorder History of Any Multi-Drug Resistant Organisms: None Reported Past Surgical History: No Surgical Hx Reported Past Anesthesia/Blood Transfusion Reactions: No Reported Reaction Past Psychological History: Bipolar Smoking Status: Never smoker Past Alcohol Use History: None Reported Past Drug Use History: None Reported Medications and Allergies Home Medications Medication Instructions Recorded Confirmed Type Finasteride [Proscar] 5 mg PO DAILY 05/21/17 05/21/17 History Folic Acid [Folic Acid] 1 mg PO DAILY 05/21/17 05/21/17 History [place] Carbonate [[place] 450 mg PO BID 05/21/17 05/21/17 History Carbonate ER] Simvastatin Unkown 20 mg PO TUTHSA 05/21/17 05/21/17 History Allergies Allergy/AdvReac Type Severity Reaction Status Date / Time No Known Allergies Allergy Verified 05/21/17 08:15 Physical Exam Vitals: Vital Signs Temp Pulse Resp BP Pulse Ox 05/21/17 09:00 97.9 F 87 18 90/48 99 05/21/17 08:00 87 19 89/49 94 L 05/21/17 07:00 86 19 90/54 92 L 05/21/17 06:30 92 16 122/73 97 05/21/17 06:10 97.7 F 94 24 122/73 95 05/21/17 05:18 88 18 111/70 99 05/21/17 03:59 95 18 101/61 98 05/21/17 02:51 97.9 F 94 18 114/69 97 05/21/17 01:33 97.5 F L 100 18 112/59 99 05/21/17 00:09 98.4 F 98 18 131/74 100 Intake and Output 05/20/17 05/21/17 05/21/17 22:59 06:59 14:59 Intake Total 30 Output Total 350 Balance 30 -350 Intake: Oral 30 Output: Urine 350 Other: # Voids 0 Weight 86.4 kg General: Appeared stated age, very pleasant, in no acute distress Head and neck: Normocephalic and atraumatic. Conjunctivae pink and sclerae not icteric. Mucous membranes moist and pink. No masses in the neck or tracheal shifts Lungs: Clear to auscultation with no dullness to percussion Heart: Regular, no abnormal sounds, murmurs, gallops or friction rubs Abdomen: Soft, no masses, organomegalies or tenderness, bowel sounds present Extremities: No clubbing, cyanosis or edema Neurologic: Alert and oriented 3. Cranial nerves grossly intact. No gross sensory or motor abnormalities Results CBC & Chem 7: 05/22/17 03:48 05/22/17 03:48 Labs: Abnormal Lab Results - Last 24 Hours (Table) 05/21/17 05/21/17 05/21/17 Range/Units 00:20 00:20 05:57 WBC 10.9 H (3.8-10.6) k/uL RBC 2.99 L (4.30-5.90) m/uL Hgb 9.5 L (13.0-17.5) gm/dL Hct 29.2 L (39.0-53.0) % MCV (80.0-100.0) fL MCHC (31.0-37.0) g/dL Neutrophils # 8.9 H (1.3-7.7) k/uL Lymphocytes # (1.0-4.8) k/uL Potassium (3.5-5.1) mmol/L Chloride (98-107) mmol/L BUN 23 H (9-20) mg/dL Glucose 165 H (74-99) mg/dL POC Glucose (mg/dL) 157 H (75-99) mg/dL ALT 86 H (21-72) U/L Total Protein 4.9 L (6.3-8.2) g/dL Albumin 3.0 L (3.5-5.0) g/dL Amylase <30 L (30-110) U/L 05/21/17 05/21/17 Range/Units 07:07 07:07 WBC 10.8 H (3.8-10.6) k/uL RBC 2.36 L (4.30-5.90) m/uL Hgb 7.2 L D (13.0-17.5) gm/dL Hct 23.6 L (39.0-53.0) % MCV 100.1 H (80.0-100.0) fL MCHC 30.7 L (31.0-37.0) g/dL Neutrophils # 9.4 H (1.3-7.7) k/uL Lymphocytes # 0.8 L (1.0-4.8) k/uL Potassium 5.5 H (3.5-5.1) mmol/L Chloride 109 H (98-107) mmol/L BUN 30 H (9-20) mg/dL Glucose 158 H (74-99) mg/dL POC Glucose (mg/dL) (75-99) mg/dL ALT 75 H (21-72) U/L Total Protein 4.3 L (6.3-8.2) g/dL Albumin 2.5 L (3.5-5.0) g/dL Amylase (30-110) U/L Assessment and Plan Assessment: Abdominal symptoms and abnormal mass and GI bleeding. The possibility of peptic ulcer disease or pancreatic malignancy with involvement of the duodenal wall would be considered. Plan: Because of his GI bleeding and anemia, I would proceed with an upper endoscopy and make further plans based on the findings.
[2017-05-22] MEDS: PANTOPRAZOLE 40 MG/10 ML VIAL IVP SCH (07:54)
[2017-05-22] MEDS: HEPARIN SODIUM,PORCINE 5,000 UNIT/ML 1 ML VIAL SQ SCH (07:56)
[2017-05-22] MEDS: ONDANSETRON 4 MG/2 ML VIAL IVP PRN ×2 (09:04→17:03)
--- NOTE | 2017-05-22 10:02 | P.PN ---
Subjective Progress Note Date: 05/22/17 Principal diagnosis: Acute GI bleeding A healthy 82-year-old male patient who presented to the burst department yesterday with complaints of vague abdominal discomfort and some nausea. Noted the patient has been having these symptoms for quite some time and the patient has lost probably 25-30 pounds. He was having also some symptoms of bloating and gas and for that reason he came into the emergency department. He also stated that he had a bout of bright red blood per rectum on the day of admission during which she became quite diaphoretic and dizzy. No hematemesis. No chest pain. No syncope. No history of any alcoholism. No intake of anticoagulants or aspirin or nonsteroidal anti-inflammatory medications. The patient has undergone colonoscopy by Dr. Cantu and he was told that there was no need for further scoping as the patient has become above 80. No previous pathology has been identified and previous colonoscopies. CAT scan of the abdomen was done in the emergency department and the patient was found to have a ill-defined hypodensity at the pancreatic head concerning of a mass. This process narrows the celiac trunk and proximal branches and partially encases the superior mesenteric artery. Approximate size was 3 x 2.9 cm. There is also likely involvement of the adjacent duodenal wall. Component of biliary obstruction is also felt to be likely with dilatation of the bile duct up to 14 mm. No calcified stones. Multiple hepatic lesions could also represent a component of metastatic disease. Patient was reevaluated today on 05/22/2017, hemoglobin this morning is 6.4, patient is receiving more packed RBCs, so far he received a total of 4 units. Patient was seen by gastroenterology, and react considering the possibility of pancreatic malignancy with involvement of the water no wall. Patient is scheduled to undergo EGD this morning. Patient is hemodynamically stable, labs were reviewed, including CBC and basic metabolic profile. His CA 19-9, came back elevated at 6252. This is consistent with most likely a pancreatic malignancy involving the duodenal wall, and that's probably the cause of his bleeding. Patient is yet to be seen by oncology on consultation. And hopefully his EGD would be diagnostic today. Objective - Vital Signs Vital signs: Vital Signs Temp 97.6 F 05/22/17 08:37 Pulse 106 H 05/22/17 09:00 Resp 19 05/22/17 09:00 BP 125/71 05/22/17 09:00 Pulse Ox 97 05/22/17 09:00 Intake & Output 05/21/17 05/22/17 05/22/17 18:59 06:59 18:59 Intake Total 1200 900 650 Output Total 2100 700 275 Balance -900 200 375 Weight 82.7 kg Intake: IV 825 150 Sodium Chloride 0.9% 1, 825 150 000 ml @ 75 mls/hr IV . [id number] KAMINI Rx#:[id number] Intake, IV Titration 300 75 Amount Sodium Chloride 0.9% 1, 300 75 000 ml @ 75 mls/hr IV . [id number] KAMINI Rx#:[id number] Oral 340 Blood Product 560 0 500 Rc As-1 Unit 310 [id number] Rc Cpda-1 Unit 0 250 [id number] Rc Cpda-1 Unit 250 [id number] Rc Cpda-1 Unit 250 [id number] Output: Gastric Drainage 400 100 Urine 1000 500 275 Emesis 700 100 Other: Voiding Method Urinal # Voids 0 # Bowel Movements 1 1 - Exam Physical Exam revealed an 82-year-old white male, in no distress. Very pleasant. HEENT: PERRLA, EOMI,, [No neck masses.] [No thyromegaly.] [No JVD.] Chest: [Clear throughout, no crackles, no rhonchi, no wheezes.] Cardiac Exam: [Normal S1 and S2, no S3 gallop, no murmur.] Abdomen: [Soft, nontender, no megaly, no rebound, no guarding, normal bowel sounds.] Extremities: [No clubbing, no edema, no cyanosis.] Neurological Exam: [No focal neurologic deficit.] Lymphatics no lymphadenopathy. Psychiatric: Normal mood affect and mental status examination. - Labs CBC & Chem 7: 05/22/17 03:48 05/22/17 03:48 Labs: Abnormal Lab Results - Last 24 Hours (Table) 05/21/17 05/21/17 05/21/17 Range/Units 07:07 12:56 14:43 WBC 11.4 H (3.8-10.6) k/uL RBC 2.08 L (4.30-5.90) m/uL Hgb 6.6 L* (13.0-17.5) gm/dL Hct 20.5 L (39.0-53.0) % RDW (11.5-15.5) % Neutrophils # 9.7 H (1.3-7.7) k/uL INR (<1.2) Chloride (98-107) mmol/L Carbon Dioxide (22-30) mmol/L BUN (9-20) mg/dL Glucose (74-99) mg/dL Calcium (8.4-10.2) mg/dL Total Protein (6.3-8.2) g/dL Albumin (3.5-5.0) g/dL CA 19-9 Antigen 6252.5 H (0.0-34.9) U/mL Crossmatch See Detail 05/21/17 05/21/17 05/22/17 Range/Units 20:49 23:04 03:48 WBC 16.0 H 18.0 H 18.5 H (3.8-10.6) k/uL RBC 2.49 L 2.41 L 2.09 L (4.30-5.90) m/uL Hgb 7.8 L 7.6 L 6.4 L* (13.0-17.5) gm/dL Hct 23.4 L 22.6 L 19.8 L* (39.0-53.0) % RDW 16.2 H 15.8 H (11.5-15.5) % Neutrophils # 16.0 H (1.3-7.7) k/uL INR (<1.2) Chloride (98-107) mmol/L Carbon Dioxide (22-30) mmol/L BUN (9-20) mg/dL Glucose (74-99) mg/dL Calcium (8.4-10.2) mg/dL Total Protein (6.3-8.2) g/dL Albumin (3.5-5.0) g/dL CA 19-9 Antigen (0.0-34.9) U/mL Crossmatch 05/22/17 05/22/17 Range/Units 03:48 03:48 WBC (3.8-10.6) k/uL RBC (4.30-5.90) m/uL Hgb (13.0-17.5) gm/dL Hct (39.0-53.0) % RDW (11.5-15.5) % Neutrophils # (1.3-7.7) k/uL INR 1.3 H (<1.2) Chloride 111 H (98-107) mmol/L Carbon Dioxide 21 L (22-30) mmol/L BUN 43 H (9-20) mg/dL Glucose 171 H (74-99) mg/dL Calcium 8.3 L (8.4-10.2) mg/dL Total Protein 3.8 L (6.3-8.2) g/dL Albumin 2.2 L (3.5-5.0) g/dL CA 19-9 Antigen (0.0-34.9) U/mL Crossmatch Assessment and Plan Assessment: 1 acute GI bleeding. The patient had significant drop in hemoglobin and subsequent follow-up on the hemoglobin level showed a drop from 9.5 down to 6.6 , patient received a total of 4 units of packed RBCs since admission. EGD is scheduled to be done today. 2 pancreatic head mass with possible involvement of the proximal duodenum and a component of, bile duct obstruction. This could be potentially the source of bleeding at the level of the proximal duodenum. No clinical evidence of biliary obstruction and the liver function tests including the alkaline phosphatase and the bilirubin are not elevated. Nevertheless, these findings, along with the presence of hepatic lesions, are concerning for metastatic pancreatic cancer 3 vague abdominal pain/weight loss, probably due to her underlying malignancy/ pancreatic lesion/cancer 4 bipolar disorder maintained on lithium 5 hyperlipidemia 6 BPH Recommendation: Considering the elevated CA19-9, we are most likely dealing with pancreatic malignancy. Oncology was consulted, patient is to go EGD today , hopefully will have a tissue diagnosis, in the meantime continue blood transfusions may or may not require ERCP. Prognosis is definitely poor and guarded. Time with Patient: Less than 30
[2017-05-22 11:12] LABS: Anisocytosis Slight; HCT 23.4 % (39.0-53.0); HGB 7.6 gm/dL (13.0-17.5); MCH 29.8 pg (25.0-35.0); MCHC 32.3 g/dL (31.0-37.0); MCV 92.1 fL (80.0-100.0); Mean Platelet Volume 7.3; Platelet Count 197 k/uL (150-450); RBC 2.54 m/uL (4.30-5.90); RDW 16.2 % (11.5-15.5)
[2017-05-22] MEDS ORDERED: IV FLUID CONTINUATION 350 ML IV ONE (12:33)
[2017-05-22] MEDS ORDERED: PROPOFOL 10 MG/ML 20 ML VIAL IV ONE (12:34)
[2017-05-22] MEDS ORDERED: LIDOCAINE 1% INJ 10MG/ML (20 ML MDV) ONE (12:34)
[2017-05-22] MEDS ORDERED: ONDANSETRON 4 MG/2 ML VIAL ONE (12:34)
--- NOTE | 2017-05-22 13:26 | P.PCN ---
Date of Procedure: 05/22/17 Procedure(s) Performed: Procedure: Esophagogastroduodenoscopy and biopsy. Preoperative diagnosis: GI bleeding and abnormal CT of the pancreas. Postoperative diagnosis: 1. Large ulceration along the medial aspect of the duodenum consistent with pancreatic tumor involving the duodenal wall with evidence of spontaneous bleeding. 2. Biopsy obtained. Preparation and sedation: Was provided by anesthesia. Brief clinical history: The patient is an 82-year-old male who was admitted to the hospital because of GI bleeding and not feeling well as well as 25 pound weight loss. The patient had a CT of the abdomen that showed possible pancreatic head mass with involvement of the duodenal wall. The patient has been bleeding after admission requiring transfusions. His CA-19-9 was above 6000. This evaluation is to assess for possible pancreatic malignancy. The details are summarized in the history and physical and dictated consultations and progress notes. Procedure: With the patient on his left lateral decubitus position and after informed consent and adequate sedation, I passed the Olympus-GIF 160 video upper endoscope through the cricopharyngeus down the esophagus. The endoscope was then passed into the stomach which was insufflated with air and inspected in detail including the retroflex view in the cardia. There was old blood and clots in the stomach. The pyloric channel did not show any ulcers. Once in the duodenum, there was a large ulcer that started in the distal duodenum/post bulbar area and extended along the medial aspect of the duodenal wall consistent with pancreatic tumor involving the duodenal wall. There was areas of oozing of blood and areas of spontaneous bleeding as well as areas of exudation and dark clots all consistent with active bleeding. I obtained a picture of the ulcerated area and a biopsy. The bleeding was observed to be involving various sites along the ulcer edge and its center making it not feasible for endoscopic intervention. The patient was manifesting bleeding during the examination but did not drop his blood pressure. Plan: The patient will be kept NPO and I replaced his NG tube with an 18-[place] tube for intermittent suction. I will discuss with the family and with you.
[2017-05-22] MEDS: FINASTERIDE 5 MG TAB PO SCH (14:06)
[2017-05-22] MEDS: LITHIUM CARBONATE ER 450 MG TABLET.ER PO SCH (14:06)
[2017-05-22] MEDS: FOLIC ACID 1 MG TAB PO SCH (14:06)
[2017-05-22] MEDS ORDERED: LORazepam 2 MG/ML INJ IV PRN (14:54)
[2017-05-22] MEDS ORDERED: SCOPOLAMINE 1.5MG/72HR PATCH TRANSDERM PRN (14:54)
[2017-05-22] MEDS ORDERED: MORPHINE SULFATE 5 MG/ML SYRINGE IVP ONE (14:54)
[2017-05-22] MEDS ORDERED: ARTIFICIAL TEARS-HYPROMELLOSE DROPS 15 ML BTL BOTH EYES PRN (14:54)
[2017-05-22] MEDS ORDERED: DRY MOUTH SPRAY 44.3 SPRAY/44.3 ML SPRAY MUCOUS MEM PRN (14:54)
[2017-05-22] MEDS ORDERED: MORPHINE SULFATE (100 MG/2 ML) 100 MG in SODIUM CHLORIDE 0.9% 100 ML IV SCH (15:00)
[2017-05-22] MEDS: MORPHINE SULFATE 5 MG/ML SYRINGE IVP PRN (20:59)
--- NOTE | 2017-05-22 21:11 | P.CONS ---
History of Present Illness - Reason for Consult Consult date: 05/22/17 pancreatic mass Requesting physician: Lorna Topete - Chief Complaint weakness, abd pain and vomiting - History of Present Illness Mr. Rehman is a very pleasant 82-year-old male with a relatively unremarkable medical history. Patient states changes in his health starting in Jan. Patient started having fluctuating constipation and diarrhea, he related to what he was eating, he noted decrease in appetite, he thinks he may have seen some black stools back then, 25 pound weight loss in 3 months and increased fatigue. These symptoms persisted and on Monday patient states that he started vomiting and it "hit me like a ton of bricks", this was associated with cold sweats and near syncope, patient did not feel better after vomiting. Once patient was in the emergency room he had his first bout of hematemesis, family states that pt had black/bloody stool for the first time they were aware of after admission. Patient currently has an NG tube inserted, family states decrease in amount of bloody fluid being suctioned throughout the day, patient is tolerating some liquids and popsicles, his abdominal discomfort is mild at this time. Patient denies fevers, sweats, shortness of breath, palpitations, abdominal distention, dysuria, lower extremity swelling or other pain. Review of Systems 10 point ROS as stated in HPI Past Medical History Past Medical History: Hyperlipidemia, Prostate Disorder Additional Past Medical History / Comment(s): history of Pericarditis, bipolar disorder History of Any Multi-Drug Resistant Organisms: None Reported Past Surgical History: No Surgical Hx Reported Past Anesthesia/Blood Transfusion Reactions: No Reported Reaction Past Psychological History: Bipolar Smoking Status: Never smoker Past Alcohol Use History: None Reported Past Drug Use History: None Reported - Past Family History Mother History Unknown: Yes Medications and Allergies Home Medications Medication Instructions Recorded Confirmed Type Finasteride [Proscar] 5 mg PO DAILY 05/21/17 05/21/17 History Folic Acid [Folic Acid] 1 mg PO DAILY 05/21/17 05/21/17 History Wooster Carbonate [Wooster 450 mg PO BID 05/21/17 05/21/17 History Carbonate ER] Simvastatin Unkown 20 mg PO TUTHSA 05/21/17 05/21/17 History Allergies Allergy/AdvReac Type Severity Reaction Status Date / Time No Known Allergies Allergy Verified 05/21/17 08:15 Physical Exam Vitals: Vital Signs Temp Pulse Pulse Resp BP BP Pulse Ox 05/22/17 20:30 99 28 H 124/67 97 05/22/17 20:00 97.9 F 102 H 20 124/67 96 05/22/17 19:30 105 H 20 124/67 97 05/22/17 19:00 105 H 18 139/75 97 05/22/17 18:30 105 H 16 139/75 97 05/22/17 18:00 103 H 17 139/75 97 05/22/17 17:00 97.8 F 100 12 123/58 98 05/22/17 16:30 100 18 137/66 97 05/22/17 16:00 101 H 20 128/74 95 05/22/17 15:30 101 H 17 128/68 98 05/22/17 15:00 101 H 15 142/80 98 05/22/17 14:31 97.6 F 108 H 20 117/68 05/22/17 14:18 97.7 F 111 H 18 95/59 99 05/22/17 14:00 103 H 20 116/63 95 05/22/17 13:42 105 H 18 101/61 96 05/22/17 12:00 107 H 18 105/58 98 05/22/17 11:00 105 H 16 125/63 99 05/22/17 10:00 98 15 125/66 98 05/22/17 09:00 106 H 19 125/71 97 05/22/17 08:37 97.6 F 96 20 112/64 97 05/22/17 08:31 97.6 F 96 20 106/53 98 05/22/17 08:03 97.7 F 107 H 20 90/49 98 05/22/17 08:00 97.7 F 105 H 21 109/59 97 05/22/17 07:53 97.7 F 101 H 20 109/59 97 05/22/17 07:00 106 H 19 100/58 05/22/17 06:50 110 H 109/56 96 05/22/17 06:40 103 H 20 109/56 96 05/22/17 06:30 105 H 15 104/51 05/22/17 06:20 97.4 F L 107 H 16 114/52 100 05/22/17 06:10 97.3 F L 107 H 20 101/55 98 05/22/17 06:00 97.3 F L 106 H 18 107/53 100 05/22/17 05:00 110 H 22 90/55 99 05/22/17 04:00 97 F L 107 H 18 88/50 99 05/22/17 03:00 105 H 22 87/57 92 L 05/22/17 02:00 104 H 14 101/47 94 L 05/22/17 01:00 104 H 18 109/68 94 L 05/22/17 00:00 97.6 F 110 H 18 115/67 93 L 05/21/17 23:00 109 H 17 108/65 94 L 05/21/17 22:00 105 H 20 119/72 92 L 05/21/17 21:00 98 19 129/65 93 L Intake and Output 05/22/17 05/22/17 05/22/17 06:59 14:59 22:59 Intake Total 600 1350 375 Output Total 450 575 250 Balance 150 775 125 Intake: IV 600 700 375 Sodium Chloride 0.9% 1, 600 450 375 000 ml @ 75 mls/hr IV . [id number] [facility] Rx#:[id number] Blood Product 0 500 Rc Cpda-1 Unit 0 250 [id number] Rc Cpda-1 Unit 250 [id number] Rc Pheresis 2 As3 Unit 0 [id number] Other 150 Output: Gastric Drainage 100 300 Urine 250 275 250 Emesis 100 Other: Voiding Method Urinal Urinal Urinal # Voids 1 # Bowel Movements 1 1 1 Weight 82.7 kg - Constitutional General appearance: average body habitus, cooperative, no acute distress - EENT Eyes: anicteric sclerae, EOMI, PERRLA, normal appearance ENT: normal oropharynx - Neck Neck: no lymphadenopathy - Respiratory Respiratory: bilateral: CTA - Cardiovascular Heart sounds: normal: S1, S2 Abnormal Heart Sounds: no systolic murmur, no diastolic murmur, no rub, no S3 Gallop, no S4 Gallop, no click, no other leg Peripheral Edema: bilateral: None - Gastrointestinal General gastrointestinal: no absent bowel sounds, no decreased bowel sounds, no distended, no hepatomegaly, no hyperactive bowel sounds, normal bowel sounds, no organomegaly, no rigid, no scaphoid, soft, no splenomegaly, tenderness, no umbilical hernia, no ventral hernia Localized gastrointestinal: tender: epigastric periumbilical - Integumentary Integumentary: pale - Neurologic Neurologic: CNII-XII intact - Musculoskeletal Musculoskeletal: strength equal bilaterally - Psychiatric Psychiatric: A&O x's 3, appropriate affect, intact judgment & insight Results CBC & Chem 7: 05/22/17 10:57 05/22/17 03:48 Labs: Abnormal Lab Results - Last 24 Hours (Table) 05/21/17 05/21/17 05/21/17 Range/Units 07:07 14:43 20:49 WBC 16.0 H (3.8-10.6) k/uL RBC 2.49 L (4.30-5.90) m/uL Hgb 7.8 L (13.0-17.5) gm/dL Hct 23.4 L (39.0-53.0) % RDW (11.5-15.5) % Neutrophils # (1.3-7.7) k/uL INR (<1.2) Chloride (98-107) mmol/L Carbon Dioxide (22-30) mmol/L BUN (9-20) mg/dL Glucose (74-99) mg/dL Calcium (8.4-10.2) mg/dL Total Protein (6.3-8.2) g/dL Albumin (3.5-5.0) g/dL CA 19-9 Antigen 6252.5 H (0.0-34.9) U/mL Crossmatch See Detail 05/21/17 05/22/17 05/22/17 Range/Units 23:04 03:48 03:48 WBC 18.0 H 18.5 H (3.8-10.6) k/uL RBC 2.41 L 2.09 L (4.30-5.90) m/uL Hgb 7.6 L 6.4 L* (13.0-17.5) gm/dL Hct 22.6 L 19.8 L* (39.0-53.0) % RDW 16.2 H 15.8 H (11.5-15.5) % Neutrophils # 16.0 H (1.3-7.7) k/uL INR 1.3 H (<1.2) Chloride (98-107) mmol/L Carbon Dioxide (22-30) mmol/L BUN (9-20) mg/dL Glucose (74-99) mg/dL Calcium (8.4-10.2) mg/dL Total Protein (6.3-8.2) g/dL Albumin (3.5-5.0) g/dL CA 19-9 Antigen (0.0-34.9) U/mL Crossmatch 05/22/17 05/22/17 Range/Units 03:48 10:57 WBC 24.0 H (3.8-10.6) k/uL RBC 2.54 L (4.30-5.90) m/uL Hgb 7.6 L (13.0-17.5) gm/dL Hct 23.4 L (39.0-53.0) % RDW 16.2 H (11.5-15.5) % Neutrophils # (1.3-7.7) k/uL INR (<1.2) Chloride 111 H (98-107) mmol/L Carbon Dioxide 21 L (22-30) mmol/L BUN 43 H (9-20) mg/dL Glucose 171 H (74-99) mg/dL Calcium 8.3 L (8.4-10.2) mg/dL Total Protein 3.8 L (6.3-8.2) g/dL Albumin 2.2 L (3.5-5.0) g/dL CA 19-9 Antigen (0.0-34.9) U/mL Crossmatch Chest x-ray: report reviewed CT scan - abdomen: report reviewed CT scan - pelvis: report reviewed Assessment and Plan (1) Pancreatic mass Narrative/Plan: Patient is status post EGD with biopsy of an ulcerated mass visualized in the duodenum. Pathology pending Dr. Donaldson reviewed patient's chart, CT of the liver, no clear metastasis described , dedicated MRI has been ordered Current Visit: Yes Status: Acute Priority: High Code(s): K86.9 - DISEASE OF PANCREAS, UNSPECIFIED SNOMED Code(s): 237041292 (2) Acute blood loss anemia Narrative/Plan: CBC daily, conservative transfusions for hemoglobin less than 7 Current Visit: Yes Status: Acute Priority: High Code(s): D62 - ACUTE POSTHEMORRHAGIC ANEMIA SNOMED Code(s): 493655425 Plan: Dr. Donaldson did discuss the case with Dr. Dueñas and it is agreed at this time that patient will continue supportive care until diagnosis,staging and treatment options and intent have been discussed. Discussed with the patient and his family that what we are dealing with is highly suspected malignancy but, we mush have pathology confirmation. We reviewed that origin of malignancy impacts prognosis and treatment options, we did review elevated Ca 19-9. It was explained that the lesions on the liver were not clearly defined as metastasis so, MRI of the liver has been requested for clarity as this will have a significant prognosis impact.
[2017-05-22 21:37] LABS: Anisocytosis Slight; Basophils # (A) 0.1 k/uL (0-0.2); Basophils % (A) 0 %; Eosinophils % (A) 0 %; HCT 22.8 % (39.0-53.0); HGB 7.5 gm/dL (13.0-17.5); Hypochromasia Slight; Lymphocytes # (A) 1.7 k/uL (1.0-4.8); Lymphocytes % (A) 7 %; MCH 30.1 pg (25.0-35.0); MCHC 32.9 g/dL (31.0-37.0); MCV 91.4 fL (80.0-100.0); Mean Platelet Volume 7.8; Monocytes # (A) 1.3 k/uL (0-1.0); Monocytes % (A) 5 %; Neutrophils # (A) 23.1 k/uL (1.3-7.7); Neutrophils % (A) 87 %; Platelet Count 189 k/uL (150-450); RDW 18.2 % (11.5-15.5)
[2017-05-22 21:45] LABS: WBC 26.5 k/uL (3.8-10.6)
[2017-05-22 22:04] LABS: Poikilocytosis (M) Present
[2017-05-23] MEDS: METOCLOPRAMIDE 5 MG/ML 2 ML VIAL IVP PRN ×2 (00:06→22:17)
[2017-05-23] MEDS: MORPHINE SULFATE 5 MG/ML SYRINGE IVP PRN (01:28)
[2017-05-23 05:23] LABS: Anisocytosis Slight; Hypochromasia Slight; MCH 29.5 pg (25.0-35.0); MCHC 31.8 g/dL (31.0-37.0); MCV 92.7 fL (80.0-100.0); Mean Platelet Volume 8.5; Platelet Count 181 k/uL (150-450); RBC 1.99 m/uL (4.30-5.90); RDW 19.2 % (11.5-15.5)
[2017-05-23 05:33] LABS: WBC 25.5 k/uL (3.8-10.6)
[2017-05-23 05:34] LABS: HCT 18.5 % (39.0-53.0); HGB 5.9 gm/dL (13.0-17.5)
[2017-05-23 05:37] LABS: Potassium 4.6 mmol/L (3.5-5.1)
[2017-05-23 06:03] LABS: Basophils # (M) 0.26 k/uL (0-0.2); Lymphocytes # (M) 1.53 k/uL (1.0-4.8); Monocytes # (M) 1.02 k/uL (0-1.0); Myelocytes # (M) 0.51 k/uL (0); Myelocytes % 2 %; Neutrophils # (M) 22.44 k/uL (1.3-7.7); Neutrophils % (M) 88 %; Nucleated Red Blood Cells 0 /100 WBC (0-0); Polychromasia Present; Total Cells Counted 200
--- NOTE | 2017-05-23 08:32 | XR ---
EXAMINATION TYPE: XR chest 1V portable DATE OF EXAM: 05/23/2017 COMPARISON: 05/21/2017 HISTORY: Gastric tube placement TECHNIQUE: Single frontal view of the chest is obtained. FINDINGS: NG tube is seen with tip coiled in the left upper quadrant likely within the gastric fundu s. Linear changes at the lung bases are noted. Heart size stable. No obvious pneumothorax or overt fa ilure. Hypertrophic and degenerative change of the spine. IMPRESSION: 1. NG tube appears with the tip at the level of the gastric fundus.
[2017-05-23] MEDS ORDERED: ATORVASTATIN 10 MG TAB PO SCH (09:00)
[2017-05-23] MEDS: PANTOPRAZOLE 40 MG/10 ML VIAL IVP SCH (09:21)
[2017-05-23] MEDS: FINASTERIDE 5 MG TAB PO SCH (09:54)
[2017-05-23] MEDS: ONDANSETRON 4 MG/2 ML VIAL IVP PRN (10:06)
--- NOTE | 2017-05-23 10:49 | P.PN ---
Subjective Progress Note Date: 05/23/17 Principal diagnosis: Acute GI bleeding A healthy 82-year-old male patient who presented to the burst department yesterday with complaints of vague abdominal discomfort and some nausea. Noted the patient has been having these symptoms for quite some time and the patient has lost probably 25-30 pounds. He was having also some symptoms of bloating and gas and for that reason he came into the emergency department. He also stated that he had a bout of bright red blood per rectum on the day of admission during which she became quite diaphoretic and dizzy. No hematemesis. No chest pain. No syncope. No history of any alcoholism. No intake of anticoagulants or aspirin or nonsteroidal anti-inflammatory medications. The patient has undergone colonoscopy by Dr. Cantu and he was told that there was no need for further scoping as the patient has become above 80. No previous pathology has been identified and previous colonoscopies. CAT scan of the abdomen was done in the emergency department and the patient was found to have a ill-defined hypodensity at the pancreatic head concerning of a mass. This process narrows the celiac trunk and proximal branches and partially encases the superior mesenteric artery. Approximate size was 3 x 2.9 cm. There is also likely involvement of the adjacent duodenal wall. Component of biliary obstruction is also felt to be likely with dilatation of the bile duct up to 14 mm. No calcified stones. Multiple hepatic lesions could also represent a component of metastatic disease. Patient was reevaluated today on 05/22/2017, hemoglobin this morning is 6.4, patient is receiving more packed RBCs, so far he received a total of 4 units. Patient was seen by gastroenterology, and react considering the possibility of pancreatic malignancy with involvement of the water no wall. Patient is scheduled to undergo EGD this morning. Patient is hemodynamically stable, labs were reviewed, including CBC and basic metabolic profile. His CA 19-9, came back elevated at 6252. This is consistent with most likely a pancreatic malignancy involving the duodenal wall, and that's probably the cause of his bleeding. Patient is yet to be seen by oncology on consultation. And hopefully his EGD would be diagnostic today. Reevaluated today on 05/23/2017, continues to have GI bleeding, hemoglobin this morning is 5.9, patient continues to require blood transfusions, awaiting the pathology report from his duodenal biopsy, may or may not be diagnostic, but the clinical picture is mostly a picture of pancreatic cancer. MRI of the liver was requested by oncology, specifically changing his CODE STATUS from comfort care to supportive care measures until a tissue diagnosis is made, but I am not certain that a tissue diagnosis will be made from duodenal biopsy only. In the meantime patient will continue to receive blood Rx for GI bleeding which is ongoing. Objective - Vital Signs Vital signs: Vital Signs Temp 97.7 F 05/23/17 10:14 Pulse 103 H 05/23/17 10:14 Resp 19 05/23/17 10:14 BP 118/67 05/23/17 10:14 Pulse Ox 96 05/23/17 10:14 Intake & Output 05/22/17 05/23/17 05/23/17 18:59 06:59 18:59 Intake Total 1725 825 695 Output Total 825 425 Balance 900 400 695 Weight 83.4 kg Intake: IV 1075 825 75 Sodium Chloride 0.9% 1, 825 825 75 000 ml @ 75 mls/hr IV . [id number] [facility] Rx#:[id number] Blood Product 500 620 Rc Cpda-1 Unit 250 [id number] Rc Cpda-1 Unit 250 [id number] Rc Pheresis 2 As3 Unit 0 310 [id number] Rc Pheresis As-3 Unit 0 [id number] Rc Pheresis As-3 Unit 310 [id number] Other 150 Output: Gastric Drainage 300 Urine 525 425 Other: Voiding Method Urinal Urinal # Voids 1 # Bowel Movements 1 1 - Exam Physical Exam revealed an 82-year-old white male, in no distress. Very pleasant. HEENT: PERRLA, EOMI,, [No neck masses.] [No thyromegaly.] [No JVD.] Chest: [Clear throughout, no crackles, no rhonchi, no wheezes.] Cardiac Exam: [Normal S1 and S2, no S3 gallop, no murmur.] Abdomen: [Soft, nontender, no megaly, no rebound, no guarding, normal bowel sounds.] Extremities: [No clubbing, no edema, no cyanosis.] Neurological Exam: [No focal neurologic deficit.] Lymphatics no lymphadenopathy. Psychiatric: Normal mood affect and mental status examination. - Labs CBC & Chem 7: 05/23/17 04:11 05/23/17 04:11 Labs: Abnormal Lab Results - Last 24 Hours (Table) 05/21/17 05/22/17 05/22/17 Range/Units 14:43 10:57 21:12 WBC 24.0 H 26.5 H* (3.8-10.6) k/uL RBC 2.54 L 2.50 L (4.30-5.90) m/uL Hgb 7.6 L 7.5 L (13.0-17.5) gm/dL Hct 23.4 L 22.8 L (39.0-53.0) % RDW 16.2 H 18.2 H (11.5-15.5) % Neutrophils # 23.1 H (1.3-7.7) k/uL Neutrophils # (Manual) (1.3-7.7) k/uL Monocytes # 1.3 H (0-1.0) k/uL Monocytes # (Manual) (0-1.0) k/uL Basophils # (Manual) (0-0.2) k/uL Myelocytes # (Manual) (0) k/uL Chloride (98-107) mmol/L Carbon Dioxide (22-30) mmol/L BUN (9-20) mg/dL Creatinine (0.66-1.25) mg/dL Glucose (74-99) mg/dL Calcium (8.4-10.2) mg/dL Crossmatch See Detail 05/23/17 05/23/17 Range/Units 04:11 04:11 WBC 25.5 H* (3.8-10.6) k/uL RBC 1.99 L (4.30-5.90) m/uL Hgb 5.9 L* D (13.0-17.5) gm/dL Hct 18.5 L* (39.0-53.0) % RDW 19.2 H (11.5-15.5) % Neutrophils # (1.3-7.7) k/uL Neutrophils # (Manual) 22.44 H (1.3-7.7) k/uL Monocytes # (0-1.0) k/uL Monocytes # (Manual) 1.02 H (0-1.0) k/uL Basophils # (Manual) 0.26 H (0-0.2) k/uL Myelocytes # (Manual) 0.51 H (0) k/uL Chloride 116 H (98-107) mmol/L Carbon Dioxide 20 L (22-30) mmol/L BUN 61 H (9-20) mg/dL Creatinine 1.58 H (0.66-1.25) mg/dL Glucose 152 H (74-99) mg/dL Calcium 8.0 L (8.4-10.2) mg/dL Crossmatch Assessment and Plan Assessment: 1 acute GI bleeding. The patient had significant drop in hemoglobin and subsequent follow-up on the hemoglobin level showed a drop from 9.5 down to 6.6 , patient received a total of 6 units of packed RBCs since admission. EGD report was noted. 2 pancreatic head mass with possible involvement of the proximal duodenum and a component of, bile duct obstruction. This could be potentially the source of bleeding at the level of the proximal duodenum. No clinical evidence of biliary obstruction and the liver function tests including the alkaline phosphatase and the bilirubin are not elevated. Nevertheless, these findings, along with the presence of hepatic lesions, are concerning for metastatic pancreatic cancer. Await MRI of the liver 3 vague abdominal pain/weight loss, probably due to her underlying malignancy/ pancreatic lesion/cancer 4 bipolar disorder maintained on lithium 5 hyperlipidemia 6 BPH Recommendation: Considering the elevated CA19-9, we are most likely dealing with pancreatic malignancy. Oncology was consulted, patient is to go EGD today , hopefully will have a tissue diagnosis, in the meantime continue blood transfusions may or may not require ERCP. Prognosis is definitely poor and guarded. Time with Patient: Less than 30
--- NOTE | 2017-05-23 12:19 | P.PN ---
Subjective Progress Note Date: 05/22/17 This is a 22 years old male with past medical history significant for bipolar disorder presented to the emergency department with nausea abdominal pain and generalized weakness. Patient stated that he was seen by his primary care physician back in March when he was complaining go is abdominal distention and discomfort but no pain at that time patient stated that he was trying to treated with anti-gas medication and that caused him some relief of his pain and patient did not seek further attention as he stated that his symptoms keep coming in going back and forth patient to presented to the hospital yesterday with intractable nausea but no vomiting abdominal discomfort and distention and he was dizzy and lightheaded initial evaluation in the emergency room revealed abdominal distention but no acute abdomen computed tomography scan was ordered which was positive for possible pancreatic mass with metastasis patient was admitted for further evaluation especially with low hemoglobin. Patient was admitted to the intensive care unit currently seems to be dizzy lightheaded though with stable vital signs patient had the large bowel movement in the emergency department which was positive for arianne red blood and stated that he never had this issue before patient was seen by the GI multiple times in the past for multiple endoscopies the old revealed normal finding in the past and patient denied any history of bleed in the past. Patient denied caretaking any blood thinner at home and stated that his been in his regular state of health when he is independent in all his daily activity and still driving his own car patient takes lithium for his bipolar disorder and stated that his been maintained for 20 years on the same drug at the bedside with multiple concerns and questions were addressed at the bedside in the presence of the nursing staff 05/22: Raymond underwent EGD today with Dr. Gonzalez finding large ulceration along the medial aspect of the duodenum consistent with pancreatic tumor involving the duodenal wall with evidence of spontaneous bleeding and biopsy was obtained. Discussed results to patient, his and daughter. Consults have been added for Drs. Donaldson. Hospice has been discussed and patient voices that he wants to be comfortable. NG tube is to be removed and patient to eat for comfort, morphine drip to be started, scopolamine patch and Ativan. Patient family are interested in any recommendations from oncology at this point and Dr. Donaldson will be in later this evening. Patient is currently received 5 units of packed RBCs and hemoglobin is 7.6. Objective - Vital Signs Vital signs: Vital Signs Temp 97.7 F 05/22/17 08:03 Pulse 107 H 05/22/17 08:03 Resp 20 05/22/17 08:03 BP 90/49 05/22/17 08:03 Pulse Ox 98 05/22/17 08:03 Intake & Output 05/21/17 05/22/17 05/22/17 18:59 06:59 18:59 Intake Total 1200 900 325 Output Total 2100 700 Balance -900 200 325 Weight 82.7 kg Intake: IV 825 75 Sodium Chloride 0.9% 1, 825 75 000 ml @ 75 mls/hr IV . [id number] [facility] Rx#:[id number] Intake, IV Titration 300 75 Amount Sodium Chloride 0.9% 1, 300 75 000 ml @ 75 mls/hr IV . [id number] [facility] Rx#:[id number] Oral 340 Blood Product 560 0 250 Rc As-1 Unit 310 [id number] Rc Cpda-1 Unit 0 250 [id number] Rc Cpda-1 Unit 250 [id number] Rc Cpda-1 Unit 0 [id number] Output: Gastric Drainage 400 100 Urine 1000 500 Emesis 700 100 Other: Voiding Method Urinal # Voids 0 # Bowel Movements 1 1 - Exam - Constitutional General appearance: mild distress - EENT Eyes: PERRLA ENT: normal oropharynx - Neck Neck: normal ROM - Respiratory Respiratory: bilateral: CTA - Cardiovascular Heart sounds: normal: S1, S2 - Gastrointestinal General gastrointestinal: distended, normal bowel sounds, soft - Integumentary Integumentary: pale - Neurologic Neurologic: CNII-XII intact - Musculoskeletal Musculoskeletal: gait normal - Psychiatric Psychiatric: A&O x's 3 - Labs CBC & Chem 7: 05/23/17 04:11 05/23/17 04:11 Labs: Abnormal Lab Results - Last 24 Hours (Table) 05/21/17 05/21/17 05/21/17 Range/Units 07:07 12:56 14:43 WBC 11.4 H (3.8-10.6) k/uL RBC 2.08 L (4.30-5.90) m/uL Hgb 6.6 L* (13.0-17.5) gm/dL Hct 20.5 L (39.0-53.0) % RDW (11.5-15.5) % Neutrophils # 9.7 H (1.3-7.7) k/uL INR (<1.2) Chloride (98-107) mmol/L Carbon Dioxide (22-30) mmol/L BUN (9-20) mg/dL Glucose (74-99) mg/dL Calcium (8.4-10.2) mg/dL Total Protein (6.3-8.2) g/dL Albumin (3.5-5.0) g/dL CA 19-9 Antigen 6252.5 H (0.0-34.9) U/mL Crossmatch See Detail 05/21/17 05/21/17 05/22/17 Range/Units 20:49 23:04 03:48 WBC 16.0 H 18.0 H 18.5 H (3.8-10.6) k/uL RBC 2.49 L 2.41 L 2.09 L (4.30-5.90) m/uL Hgb 7.8 L 7.6 L 6.4 L* (13.0-17.5) gm/dL Hct 23.4 L 22.6 L 19.8 L* (39.0-53.0) % RDW 16.2 H 15.8 H (11.5-15.5) % Neutrophils # 16.0 H (1.3-7.7) k/uL INR (<1.2) Chloride (98-107) mmol/L Carbon Dioxide (22-30) mmol/L BUN (9-20) mg/dL Glucose (74-99) mg/dL Calcium (8.4-10.2) mg/dL Total Protein (6.3-8.2) g/dL Albumin (3.5-5.0) g/dL CA 19-9 Antigen (0.0-34.9) U/mL Crossmatch 05/22/17 05/22/17 Range/Units 03:48 03:48 WBC (3.8-10.6) k/uL RBC (4.30-5.90) m/uL Hgb (13.0-17.5) gm/dL Hct (39.0-53.0) % RDW (11.5-15.5) % Neutrophils # (1.3-7.7) k/uL INR 1.3 H (<1.2) Chloride 111 H (98-107) mmol/L Carbon Dioxide 21 L (22-30) mmol/L BUN 43 H (9-20) mg/dL Glucose 171 H (74-99) mg/dL Calcium 8.3 L (8.4-10.2) mg/dL Total Protein 3.8 L (6.3-8.2) g/dL Albumin 2.2 L (3.5-5.0) g/dL CA 19-9 Antigen (0.0-34.9) U/mL Crossmatch Assessment and Plan Plan: 1. Large ulceration in the duodenum consistent with pancreatic tumor involving the duodenal wall with spontaneous bleeding. Patient is interested and comfort care. NG tube will be removed and morphine drip, scopolamine and Ativan added. Patient family would like input from oncology. They would also like information regarding the [facility] home and consult placed. 2. 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 Continue as in #1 3. Acute blood loss anemia secondary to duodenal ulceration and pancreatic tumor status post transfusion of multiple packed RBCs. Continue to monitor hemoglobin. 4. Unintentional weight loss secondary to malignancy. 5. Generalized weakness and dizziness secondary to malignancy. 6. Bipolar disorder. 7. Prostate hyperplasia. Impression and plan of care have been directed as dictated by the signing physician. Naomie High nurse practitioner acting as scribe for signing physician.
--- NOTE | 2017-05-23 12:24 | P.PN ---
Subjective Progress Note Date: 05/23/17 This is a 22 years old male with past medical history significant for bipolar disorder presented to the emergency department with nausea abdominal pain and generalized weakness. Patient stated that he was seen by his primary care physician back in March when he was complaining go is abdominal distention and discomfort but no pain at that time patient stated that he was trying to treated with anti-gas medication and that caused him some relief of his pain and patient did not seek further attention as he stated that his symptoms keep coming in going back and forth patient to presented to the hospital yesterday with intractable nausea but no vomiting abdominal discomfort and distention and he was dizzy and lightheaded initial evaluation in the emergency room revealed abdominal distention but no acute abdomen computed tomography scan was ordered which was positive for possible pancreatic mass with metastasis patient was admitted for further evaluation especially with low hemoglobin. Patient was admitted to the intensive care unit currently seems to be dizzy lightheaded though with stable vital signs patient had the large bowel movement in the emergency department which was positive for arianne red blood and stated that he never had this issue before patient was seen by the GI multiple times in the past for multiple endoscopies the old revealed normal finding in the past and patient denied any history of bleed in the past. Patient denied caretaking any blood thinner at home and stated that his been in his regular state of health when he is independent in all his daily activity and still driving his own car patient takes lithium for his bipolar disorder and stated that his been maintained for 20 years on the same drug at the bedside with multiple concerns and questions were addressed at the bedside in the presence of the nursing staff 05/22: Raymond underwent EGD today with Dr. Gonzalez finding large ulceration along the medial aspect of the duodenum consistent with pancreatic tumor involving the duodenal wall with evidence of spontaneous bleeding and biopsy was obtained. Discussed results to patient, his and daughter. Consults have been added for Drs. Donaldson. Hospice has been discussed and patient voices that he wants to be comfortable. NG tube is to be removed and patient to eat for comfort, morphine drip to be started, scopolamine patch and Ativan. Patient family are interested in any recommendations from oncology at this point and Dr. Donaldson will be in later this evening. Patient is currently received 5 units of packed RBCs and hemoglobin is 7.6. 05/23: Patient has been seen by oncology with plan for MRI of the liver and radiation therapy. Consult added for Dr. Carpenter. Patient's NG tube was replaced, according to nursing because patient requested it. Patient has had some nausea. He did not receive scopolamine patch which will be done this morning and he has Zofran available. Hemoglobin this morning is 5.9 and patient continues to have rectal bleeding. He will be given 3 units of packed RBCs today. Kidney numbers are increasing with BUN of 61 and creatinine 1.58. Objective - Vital Signs Vital signs: Vital Signs Temp 97.6 F 05/23/17 12:00 Pulse 100 05/23/17 12:00 Resp 18 05/23/17 12:00 BP 125/67 05/23/17 12:00 Pulse Ox 98 05/23/17 12:00 Intake & Output 05/22/17 05/23/17 05/23/17 18:59 06:59 18:59 Intake Total 1725 825 945 Output Total 825 425 200 Balance 900 400 745 Weight 83.4 kg 89 kg Intake: IV 1075 825 325 Sodium Chloride 0.9% 1, 825 825 325 000 ml @ 75 mls/hr IV . [id number] [facility] Rx#:[id number] Blood Product 500 620 Rc Cpda-1 Unit 250 [id number] Rc Cpda-1 Unit 250 [id number] Rc Pheresis 2 As3 Unit 0 310 [id number] Rc Pheresis As-3 Unit 0 [id number] Rc Pheresis As-3 Unit 310 [id number] Other 150 Output: Gastric Drainage 300 Urine 525 425 200 Other: Voiding Method Urinal Urinal # Voids 1 # Bowel Movements 1 1 1 - Exam - Constitutional General appearance: mild distress - EENT Eyes: PERRLA ENT: normal oropharynx - Neck Neck: normal ROM - Respiratory Respiratory: bilateral: CTA - Cardiovascular Heart sounds: normal: S1, S2 - Gastrointestinal General gastrointestinal: distended, normal bowel sounds, soft - Integumentary Integumentary: pale - Neurologic Neurologic: CNII-XII intact - Musculoskeletal Musculoskeletal: gait normal - Psychiatric Psychiatric: A&O x's 3 - Labs CBC & Chem 7: 05/23/17 04:11 05/23/17 04:11 Labs: Abnormal Lab Results - Last 24 Hours (Table) 05/21/17 05/22/17 05/23/17 Range/Units 14:43 21:12 04:11 WBC 26.5 H* 25.5 H* (3.8-10.6) k/uL RBC 2.50 L 1.99 L (4.30-5.90) m/uL Hgb 7.5 L 5.9 L* D (13.0-17.5) gm/dL Hct 22.8 L 18.5 L* (39.0-53.0) % RDW 18.2 H 19.2 H (11.5-15.5) % Neutrophils # 23.1 H (1.3-7.7) k/uL Neutrophils # (Manual) 22.44 H (1.3-7.7) k/uL Monocytes # 1.3 H (0-1.0) k/uL Monocytes # (Manual) 1.02 H (0-1.0) k/uL Basophils # (Manual) 0.26 H (0-0.2) k/uL Myelocytes # (Manual) 0.51 H (0) k/uL Chloride (98-107) mmol/L Carbon Dioxide (22-30) mmol/L BUN (9-20) mg/dL Creatinine (0.66-1.25) mg/dL Glucose (74-99) mg/dL Calcium (8.4-10.2) mg/dL Crossmatch See Detail 05/23/17 Range/Units 04:11 WBC (3.8-10.6) k/uL RBC (4.30-5.90) m/uL Hgb (13.0-17.5) gm/dL Hct (39.0-53.0) % RDW (11.5-15.5) % Neutrophils # (1.3-7.7) k/uL Neutrophils # (Manual) (1.3-7.7) k/uL Monocytes # (0-1.0) k/uL Monocytes # (Manual) (0-1.0) k/uL Basophils # (Manual) (0-0.2) k/uL Myelocytes # (Manual) (0) k/uL Chloride 116 H (98-107) mmol/L Carbon Dioxide 20 L (22-30) mmol/L BUN 61 H (9-20) mg/dL Creatinine 1.58 H (0.66-1.25) mg/dL Glucose 152 H (74-99) mg/dL Calcium 8.0 L (8.4-10.2) mg/dL Crossmatch Assessment and Plan Plan: 1. Large ulceration in the duodenum consistent with pancreatic tumor involving the duodenal wall with spontaneous bleeding. NG tube will be removed if nausea is controlled with scopolamine patch and Zofran. Continue morphine, and Ativan. Oncology consult appreciated. Patient is scheduled for MRI of the liver this afternoon. Consult with Dr. Carpenter regarding radiation therapy. 2. 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 Continue as in #1 3. Acute blood loss anemia secondary to duodenal ulceration and pancreatic tumor status post transfusion of multiple packed RBCs. Continue to monitor hemoglobin. 4. Unintentional weight loss secondary to malignancy. 5. Generalized weakness and dizziness secondary to malignancy. 6. Bipolar disorder. 7. Prostate hyperplasia. 8. Acute kidney injury secondary to GI bleed. Continue IV fluids. Impression and plan of care have been directed as dictated by the signing physician. Naomie High nurse practitioner acting as scribe for signing physician.
[2017-05-23 13:47] LABS: Anisocytosis Slight; HCT 24.9 % (39.0-53.0); MCH 30.7 pg (25.0-35.0); MCHC 33.7 g/dL (31.0-37.0); MCV 91.3 fL (80.0-100.0); Platelet Count 155 k/uL (150-450); RBC 2.73 m/uL (4.30-5.90); RDW 18.4 % (11.5-15.5)
[2017-05-23 13:50] LABS: HGB 8.4 gm/dL (13.0-17.5); WBC 28.6 k/uL (3.8-10.6)
--- NOTE | 2017-05-23 16:24 | MR ---
EXAMINATION TYPE: MR liver wo con DATE OF EXAM: 05/23/2017 COMPARISON: NONE HISTORY: Pancreatic mass, liver lesions. Abnormal CT. Standard multiplanar, multisequence MRI departmental protocol Multiplanar, multisequence images of the abdomen focus in liver were acquired. FINDINGS: Evaluation is suboptimal secondary to lack of IV contrast. LIVER: Liver is overall slightly small in size. Corresponding to CT there are multiple round lesions of T1 hypointensity and T2 hyperintensity, they are not as intense as expected for simple cysts. Gall bladder is distended margins without intraluminal gallstones. There is no suspicious intrahepatic or extrahepatic biliary dilatation. Common bile duct measures 9 mm at level of bindu hepatis with abrupt narrowing at level of pancreatic head. Distal CBD is nondilated at 3 mm coronal image 18. Abnormal soft tissue lesion encasing vessels in the pancreatic head is better seen on CT then noncont rast MRI. There is better visualization on MRI of dilated distal pancreatic duct with abrupt narrowin g seen best a image 22 series 501 and 601. Distal pancreas is atrophic. There is low intensity area f rom gas in adjacent antrum and duodenal sweep. Suspicious area measures roughly 3.5 cm transversely b y 3.0 cm AP diameter. OTHER: S-shaped scoliosis is redemonstrated. There is large hemangioma right L2 vertebra redemonstrated. Sca ttered smaller hemangiomas are present including T10 vertebra. There is multilevel spurring and disc space narrowing in the lumbar spine. Both adrenal glands are normal in size. Spleen is unremarkable. There is cortical thinning in both kidneys without hydronephrosis or suspicious mass. Terminal ileum is well-visualized and appears unremarkable. There is no suspicious small or large bowel dilatation. No concerning abdominal fluid collection is seen. Some suspicious lymph nodes at level of celiac axis or seen better on CT versus MRI. IMPRESSION: Exam is suboptimal without IV contrast as well as more motion artifact which is typical in older wally ents. 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
--- NOTE | 2017-05-23 17:19 | P.CONS ---
History of Present Illness - Reason for Consult Consult date: 05/23/17 GI bleed Requesting physician: Cortes Donaldson - Chief Complaint GI bleed 2/2 pancreas cancer - History of Present Illness Patient is an 82 year old male with a history of abdominal pain, nausea and weakness. He presented to the ER on 05/21/2017. He reported dark and tarry stools, and shortly after admission in the hospital he reports having an episode of hematemesis. A CT scan of the abdomen/pelvis from 05/21/2017 revealed scattered hepatic hypodensities (likely metastases), and an ill defined density in the pancreas head narrowing the celiac trunk. This appeared to invade the duodenum. CA 19-9 was elevated at 6,000. His hemoglobin dropped down to 5.9 on 05/23/17. He has had multiple blood transfusions. He did undergo an EGD on 05/22/17 revealing a large ulcer in the distal duodenum. This was noted to be oozing blood. Biopsy was performed and results are pending. The patient recently finished an MRI of the liver which was concerning for pancreas primary with liver metastases. The patient reports he is still having frequent bloody bowel-movements. His stomach does not bother him as much since he had an NG tube placed. Review of Systems Constitutional: Reports fatigue, Reports lethargy, Reports weight loss, Denies chills, Denies fever Ears, nose, mouth and throat: Denies dysphagia Cardiovascular: Denies chest pain Respiratory: Denies cough, Denies dyspnea Gastrointestinal: Reports abdominal pain, Reports BRBPR, Reports change in bowel habits, Reports coffee ground emesis Integumentary: Denies darkening of skin Neurological: Reports weakness (generalized), Denies ataxia Past Medical History Past Medical History: Hyperlipidemia, Prostate Disorder Additional Past Medical History / Comment(s): history of Pericarditis, bipolar disorder History of Any Multi-Drug Resistant Organisms: None Reported Past Surgical History: No Surgical Hx Reported Past Anesthesia/Blood Transfusion Reactions: No Reported Reaction Past Psychological History: Bipolar Smoking Status: Never smoker Past Alcohol Use History: None Reported Past Drug Use History: None Reported - Past Family History Mother History Unknown: Yes Medications and Allergies Home Medications Medication Instructions Recorded Confirmed Type Finasteride [Proscar] 5 mg PO DAILY 05/21/17 05/21/17 History Folic Acid [Folic Acid] 1 mg PO DAILY 05/21/17 05/21/17 History Goldsmith Carbonate [Goldsmith 450 mg PO BID 05/21/17 05/21/17 History Carbonate ER] Simvastatin Unkown 20 mg PO TUTHSA 05/21/17 05/21/17 History Allergies Allergy/AdvReac Type Severity Reaction Status Date / Time No Known Allergies Allergy Verified 05/21/17 08:15 Physical Exam Vitals: Vital Signs Temp Pulse Pulse Resp BP Pulse Ox 05/23/17 16:00 104 H 105 H 20 153/80 98 05/23/17 15:50 107 H 20 153/80 97 05/23/17 15:40 100 14 153/80 94 L 05/23/17 15:30 104 H 26 H 153/80 95 05/23/17 15:20 104 H 16 153/80 84 L 05/23/17 15:10 103 H 19 153/80 97 05/23/17 15:00 147/80 05/23/17 14:50 147/80 05/23/17 14:30 147/80 05/23/17 14:00 110 H 21 140/75 97 05/23/17 13:30 99 16 140/75 97 05/23/17 13:00 101 H 19 141/74 93 L 05/23/17 12:30 100 14 141/74 96 05/23/17 12:00 97.6 F 100 101 H 18 125/67 98 05/23/17 11:30 99 17 125/67 96 05/23/17 11:00 103 H 17 118/67 97 05/23/17 10:30 101 H 16 118/67 96 05/23/17 10:14 97.7 F 103 H 19 118/67 96 05/23/17 10:00 104 H 15 125/71 98 05/23/17 09:30 103 H 12 125/71 100 05/23/17 09:00 97.7 F 105 H 17 103/48 95 05/23/17 08:30 97.6 F 101 H 20 103/48 89 L 05/23/17 08:00 97.6 F 104 H 103 H 17 103/48 96 05/23/17 07:30 103 H 16 103/48 97 05/23/17 07:00 103 H 10 L 114/64 94 L 05/23/17 06:30 104 H 17 114/64 94 L 05/23/17 06:00 103 H 17 114/64 96 05/23/17 05:00 103 H 16 117/64 95 05/23/17 04:00 97.8 F 105 H 16 117/64 94 L 05/23/17 03:30 103 H 16 117/64 96 05/23/17 03:00 105 H 27 H 140/67 97 05/23/17 02:00 100 16 140/67 95 05/23/17 01:00 107 H 16 126/66 95 05/23/17 00:00 97.6 F 102 H 15 126/66 97 05/22/17 23:00 104 H 14 141/70 95 05/22/17 22:00 97 17 141/70 96 05/22/17 21:00 101 H 22 124/67 95 05/22/17 20:30 99 28 H 124/67 97 05/22/17 20:00 97.9 F 102 H 20 124/67 96 05/22/17 19:30 105 H 20 124/67 97 05/22/17 19:00 105 H 18 139/75 97 05/22/17 18:30 105 H 16 139/75 97 05/22/17 18:00 103 H 17 139/75 97 05/22/17 17:00 97.8 F 100 12 123/58 98 Intake and Output 05/23/17 05/23/17 05/23/17 06:59 14:59 22:59 Intake Total 600 1025 40 Output Total 275 400 Balance 325 625 40 Intake: IV 600 405 Sodium Chloride 0.9% 1, 600 405 000 ml @ 75 mls/hr IV . [id number] [facility] Rx#:[id number] Oral 40 Blood Product 620 0 Rc Pheresis 2 As3 Unit 310 [id number] Rc Pheresis As-3 Unit 0 0 [id number] Rc Pheresis As-3 Unit 310 [id number] Output: Urine 275 400 Other: Voiding Method Urinal # Bowel Movements 1 Weight 83.4 kg 89 kg Patient Weight 05/24/17 06:59 Weight 89 kg - Constitutional General appearance: no acute distress - EENT Eyes: EOMI, PERRLA ENT: hearing grossly normal - Neck Neck: no lymphadenopathy - Respiratory Respiratory: bilateral: CTA - Cardiovascular Rhythm: regular - Gastrointestinal General gastrointestinal: decreased bowel sounds, no distended, no hepatomegaly , no rigid - Integumentary Integumentary: calor - Neurologic Neurologic: CNII-XII intact - Psychiatric Psychiatric: A&O x's 3, appropriate affect Results CBC & Chem 7: 05/23/17 12:43 05/23/17 04:11 Labs: Abnormal Lab Results - Last 24 Hours (Table) 05/21/17 05/22/17 05/23/17 Range/Units 14:43 21:12 04:11 WBC 26.5 H* 25.5 H* (3.8-10.6) k/uL RBC 2.50 L 1.99 L (4.30-5.90) m/uL Hgb 7.5 L 5.9 L* D (13.0-17.5) gm/dL Hct 22.8 L 18.5 L* (39.0-53.0) % RDW 18.2 H 19.2 H (11.5-15.5) % Neutrophils # 23.1 H (1.3-7.7) k/uL Neutrophils # (Manual) 22.44 H (1.3-7.7) k/uL Monocytes # 1.3 H (0-1.0) k/uL Monocytes # (Manual) 1.02 H (0-1.0) k/uL Basophils # (Manual) 0.26 H (0-0.2) k/uL Myelocytes # (Manual) 0.51 H (0) k/uL Chloride (98-107) mmol/L Carbon Dioxide (22-30) mmol/L BUN (9-20) mg/dL Creatinine (0.66-1.25) mg/dL Glucose (74-99) mg/dL Calcium (8.4-10.2) mg/dL Crossmatch See Detail 05/23/17 05/23/17 Range/Units 04:11 12:43 WBC 28.6 H* (3.8-10.6) k/uL RBC 2.73 L (4.30-5.90) m/uL Hgb 8.4 L D (13.0-17.5) gm/dL Hct 24.9 L (39.0-53.0) % RDW 18.4 H (11.5-15.5) % Neutrophils # (1.3-7.7) k/uL Neutrophils # (Manual) (1.3-7.7) k/uL Monocytes # (0-1.0) k/uL Monocytes # (Manual) (0-1.0) k/uL Basophils # (Manual) (0-0.2) k/uL Myelocytes # (Manual) (0) k/uL Chloride 116 H (98-107) mmol/L Carbon Dioxide 20 L (22-30) mmol/L BUN 61 H (9-20) mg/dL Creatinine 1.58 H (0.66-1.25) mg/dL Glucose 152 H (74-99) mg/dL Calcium 8.0 L (8.4-10.2) mg/dL Crossmatch CT scan - abdomen: report reviewed, image reviewed MRI - abdomen: report reviewed, image reviewed Assessment and Plan Plan: 1. GI bleed: Duodenum - secondary to direct invasion of likely pancreatic malignancy. Pathology pending at this time. Patient requiring significant transfusion (2 units / day). Feels weak likely 2/2 malignancy and blood loss anemia. I discussed with the patient and his family the possibility of doing palliative radiotherapy to the pelvis. I explained that radiation may help to decrease the bleeding, although this effect may not be immediate - it could require some time. They are considering if they would like to go forward with this. If they decide to pursue radiotherapy, we will do a simulation and treatment tomorrow so that we could deliver 3 treatments before the weekend. 2. Metastatic pancreas cancer: MRI of liver reveals distant metastases. He is discussing potential systemic therapy vs comfort care. Time with Patient: Greater than 30
[2017-05-23 20:44] LABS: Anisocytosis Slight; HCT 20.8 % (39.0-53.0); Hypochromasia Slight; MCH 31.1 pg (25.0-35.0); MCHC 32.8 g/dL (31.0-37.0); MCV 94.7 fL (80.0-100.0); Macrocytosis Slight; Mean Platelet Volume 7.8; Platelet Count 176 k/uL (150-450); Poikilocytosis Slight; RBC 2.19 m/uL (4.30-5.90); RDW 19.2 % (11.5-15.5)
[2017-05-23] MEDS ORDERED: LITHIUM CARBONATE ER 450 MG TABLET.ER PO SCH (21:00)
[2017-05-23 21:06] LABS: HGB 6.8 gm/dL (13.0-17.5); WBC 25.8 k/uL (3.8-10.6)
[2017-05-24 01:03] VITALS: BP 102/47; TEMP 97.9
[2017-05-24 03:08] VITALS: PULSE 104
[2017-05-24] MEDS: MORPHINE SULFATE (100 MG/2 ML) 100 MG in SODIUM CHLORIDE 0.9% 100 ML IV SCH ×3 (03:23→13:52)
[2017-05-24] MEDS: ONDANSETRON 4 MG/2 ML VIAL IVP PRN (03:24)
[2017-05-24] MEDS: MORPHINE SULFATE 5 MG/ML SYRINGE IVP PRN (03:24)
[2017-05-24] MEDS ORDERED: MORPHINE SULFATE 2 MG/ML SYRINGE IVP PRN (08:05)
[2017-05-24] MEDS: PANTOPRAZOLE 40 MG/10 ML VIAL IVP SCH (09:18)
--- NOTE | 2017-05-24 11:55 | P.PN ---
Subjective Progress Note Date: 05/24/17 Principal diagnosis: Acute GI bleeding A healthy 82-year-old male patient who presented to the burst department yesterday with complaints of vague abdominal discomfort and some nausea. Noted the patient has been having these symptoms for quite some time and the patient has lost probably 25-30 pounds. He was having also some symptoms of bloating and gas and for that reason he came into the emergency department. He also stated that he had a bout of bright red blood per rectum on the day of admission during which she became quite diaphoretic and dizzy. No hematemesis. No chest pain. No syncope. No history of any alcoholism. No intake of anticoagulants or aspirin or nonsteroidal anti-inflammatory medications. The patient has undergone colonoscopy by Dr. Cantu and he was told that there was no need for further scoping as the patient has become above 80. No previous pathology has been identified and previous colonoscopies. CAT scan of the abdomen was done in the emergency department and the patient was found to have a ill-defined hypodensity at the pancreatic head concerning of a mass. This process narrows the celiac trunk and proximal branches and partially encases the superior mesenteric artery. Approximate size was 3 x 2.9 cm. There is also likely involvement of the adjacent duodenal wall. Component of biliary obstruction is also felt to be likely with dilatation of the bile duct up to 14 mm. No calcified stones. Multiple hepatic lesions could also represent a component of metastatic disease. Patient was reevaluated today on 05/22/2017, hemoglobin this morning is 6.4, patient is receiving more packed RBCs, so far he received a total of 4 units. Patient was seen by gastroenterology, and react considering the possibility of pancreatic malignancy with involvement of the water no wall. Patient is scheduled to undergo EGD this morning. Patient is hemodynamically stable, labs were reviewed, including CBC and basic metabolic profile. His CA 19-9, came back elevated at 6252. This is consistent with most likely a pancreatic malignancy involving the duodenal wall, and that's probably the cause of his bleeding. Patient is yet to be seen by oncology on consultation. And hopefully his EGD would be diagnostic today. Reevaluated today on 05/23/2017, continues to have GI bleeding, hemoglobin this morning is 5.9, patient continues to require blood transfusions, awaiting the pathology report from his duodenal biopsy, may or may not be diagnostic, but the clinical picture is mostly a picture of pancreatic cancer. MRI of the liver was requested by oncology, specifically changing his CODE STATUS from comfort care to supportive care measures until a tissue diagnosis is made, but I am not certain that a tissue diagnosis will be made from duodenal biopsy only. In the meantime patient will continue to receive blood Rx for GI bleeding which is ongoing. Patient was reevaluated today on 05/24/2017, apparently last night, patient requested comfort care measures, he did not any more blood to be given, and he requested to be left alone to pass in peace comfort and dignity. his wishes were respected, at the patient is now on comfort care measures. We plan to transfer the patient down to oncology and possibly ask for hospice evaluation. clearly the picture is a picture of pancreatic cancer with liver metastasis, biopsy from the duodenal tissue was nondiagnostic and that is not surprising family is at bedside today, and I had a long discussion with his and his daughter. Objective - Vital Signs Vital signs: Vital Signs Temp 97.9 F 05/24/17 00:00 Pulse 104 H 05/24/17 03:00 Resp 14 05/24/17 03:00 BP 102/47 05/24/17 01:00 Pulse Ox 94 L 05/24/17 01:00 Intake & Output 05/23/17 05/24/17 05/24/17 18:59 06:59 18:59 Intake Total 1065 140 6.850 Output Total 650 Balance 415 140 6.850 Weight 89 kg Intake: IV 405 140 NS 140 Sodium Chloride 0.9% 1, 405 000 ml @ 75 mls/hr IV . [id number] [facility] Rx#:[id number] Intake, IV Titration 6.850 Amount Morphine Sulfate (100 mg/ 6.850 2 ml) 100 mg In Sodium Chloride 0.9% 100 ml @ 1 MG/HR 1.02 mls/hr IV . Q24H [facility] Rx#:[id number] Oral 40 Blood Product 620 Rc Pheresis 2 As3 Unit 310 [id number] Rc Pheresis As-3 Unit 0 [id number] Rc Pheresis As-3 Unit 310 [id number] Output: Gastric Drainage 250 Urine 400 Other: Voiding Method Incontinent # Voids 1 1 # Bowel Movements 1 1 - Exam Physical Exam revealed an 82-year-old white male, in no distress. HEENT: PERRLA, EOMI,, [No neck masses.] [No thyromegaly.] [No JVD.] Chest: [Clear throughout, no crackles, no rhonchi, no wheezes.] Cardiac Exam: [Normal S1 and S2, no S3 gallop, no murmur.] Abdomen: [Soft, nontender, no megaly, no rebound, no guarding, normal bowel sounds.] Extremities: [No clubbing, no edema, no cyanosis.] Neurological Exam: [No focal neurologic deficit.] Lymphatics no lymphadenopathy. Psychiatric: Normal mood affect and mental status examination. - Labs CBC & Chem 7: 05/23/17 20:30 05/23/17 04:11 Labs: Abnormal Lab Results - Last 24 Hours (Table) 05/21/17 05/23/17 05/23/17 Range/Units 14:43 12:43 20:30 WBC 28.6 H* 25.8 H* (3.8-10.6) k/uL RBC 2.73 L 2.19 L (4.30-5.90) m/uL Hgb 8.4 L D 6.8 L* D (13.0-17.5) gm/dL Hct 24.9 L 20.8 L (39.0-53.0) % RDW 18.4 H 19.2 H (11.5-15.5) % Crossmatch See Detail Assessment and Plan Assessment: 1 acute GI bleeding. The patient had significant drop in hemoglobin and subsequent follow-up on the hemoglobin level showed a drop from 9.5 down to 6.6 , patient received a total of 6 units of packed RBCs since admission. EGD report was noted. 2 pancreatic head mass with possible involvement of the proximal duodenum and a component of, bile duct obstruction. This could be potentially the source of bleeding at the level of the proximal duodenum. No clinical evidence of biliary obstruction and the liver function tests including the alkaline phosphatase and the bilirubin are not elevated. Nevertheless, these findings, along with the presence of hepatic lesions, are concerning for metastatic pancreatic cancer. MRI of the liver is also suggestive of pancreatic cancer with liver metastases. 3 vague abdominal pain/weight loss, probably due to her underlying malignancy/ pancreatic lesion/cancer 4 bipolar disorder maintained on lithium 5 hyperlipidemia 6 BPH Recommendation: Considering the overall clinical picture, and considering the patient's own request, I agree with comfort care measures, and transferred to oncology today. will follow on when necessary basis. Had a long discussion with his and his daughter at bedside. Time with Patient: Less than 30
--- NOTE | 2017-05-24 13:26 | P.DS ---
Providers Date of admission: 05/21/17 02:09 Expected date of discharge: 05/24/17 Attending physician: Travis Williamson Consults: 05/21/17 05:40 Consult Physician Urgent Consulting Provider: Kait Zhou Consult Reason/Comments: icu managment Do you want consulting provider notified?: Already Contacted 05/21/17 14:44 Consult Physician Urgent Consulting Provider: Cortes Donaldson Consult Reason/Comments: panreatic mass Do you want consulting provider notified?: Yes 05/22/17 22:06 Consult Physician Routine Consulting Provider: Chiki Carpenter Consult Reason/Comments: possible need for radiation treatment Do you want consulting provider notified?: Yes, Notify in am Primary care physician: [facility] Course: This is a 22 years old male with past medical history significant for bipolar disorder presented to the emergency department with nausea abdominal pain and generalized weakness. Patient stated that he was seen by his primary care physician back in March when he was complaining go is abdominal distention and discomfort but no pain at that time patient stated that he was trying to treated with anti-gas medication and that caused him some relief of his pain and patient did not seek further attention as he stated that his symptoms keep coming in going back and forth patient to presented to the hospital yesterday with intractable nausea but no vomiting abdominal discomfort and distention and he was dizzy and lightheaded initial evaluation in the emergency room revealed abdominal distention but no acute abdomen computed tomography scan was ordered which was positive for possible pancreatic mass with metastasis patient was admitted for further evaluation especially with low hemoglobin. Patient was admitted to the intensive care unit currently seems to be dizzy lightheaded though with stable vital signs patient had the large bowel movement in the emergency department which was positive for arianne red blood and stated that he never had this issue before patient was seen by the GI multiple times in the past for multiple endoscopies the old revealed normal finding in the past and patient denied any history of bleed in the past. Patient denied caretaking any blood thinner at home and stated that his been in his regular state of health when he is independent in all his daily activity and still driving his own car patient takes lithium for his bipolar disorder and stated that his been maintained for 20 years on the same drug at the bedside with multiple concerns and questions were addressed at the bedside in the presence of the nursing staff 05/22: Raymond underwent EGD today with Dr. Nasr finding large ulceration along the medial aspect of the duodenum consistent with pancreatic tumor involving the duodenal wall with evidence of spontaneous bleeding and biopsy was obtained. Discussed results to patient, his and daughter. Consults have been added for Drs. Donaldson. Hospice has been discussed and patient voices that he wants to be comfortable. NG tube is to be removed and patient to eat for comfort, morphine drip to be started, scopolamine patch and Ativan. Patient family are interested in any recommendations from oncology at this point and Dr. Donaldson will be in later this evening. Patient is currently received 5 units of packed RBCs and hemoglobin is 7.6. 05/23: Patient has been seen by oncology with plan for MRI of the liver and radiation therapy. Consult added for Dr. Carpenter. Patient's NG tube was replaced, according to nursing because patient requested it. Patient has had some nausea. He did not receive scopolamine patch which will be done this morning and he has Zofran available. Hemoglobin this morning is 5.9 and patient continues to have rectal bleeding. He will be given 3 units of packed RBCs today. Kidney numbers are increasing with BUN of 61 and creatinine 1.58. 05/24: Patient has been switched back to [facility] last evening including morphine drip. Patient will be transitioned to [facility] under [facility]. Patient is awaiting for oncology/[facility] bed. Discharge diagnoses: 1. Large ulceration in the duodenum consistent with pancreatic tumor involving the duodenal wall with spontaneous bleeding. 2. 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 3. Acute blood loss anemia secondary to duodenal ulceration and pancreatic tumor status post transfusion of multiple packed RBCs. 4. Unintentional weight loss secondary to malignancy. 5. Generalized weakness and dizziness secondary to malignancy. 6. Bipolar disorder. 7. Prostate hyperplasia. 8. Acute kidney injury secondary to GI bleed. Continue IV fluids. Impression and plan of care have been directed as dictated by the signing physician. Naomie High nurse practitioner acting as scribe for signing physician. Patient Condition at Discharge: Stable Plan - Discharge Summary New Discharge Prescriptions: New Atropine Ophth Soln 1% 5Ml [Isopto Atropine 1% 5Ml] 2 drops PO Q4HR PRN #1 bottle PRN Reason: Secretions LORazepam ORAL CONC [Ativan Intensol] 2 mg PO Q4HR PRN #30 ml PRN Reason: Anxiety MORPHINE ORAL CHRISTIANO CONC 20mg/mL [Roxanol Oral Soln Conc 20MG/ML] 5 mg PO Q4H PRN #30 ml PRN Reason: Pain Discontinued [place] Carbonate [[place] Carbonate ER] 450 mg PO BID Folic Acid [Folic Acid] 1 mg PO DAILY Finasteride [Proscar] 5 mg PO DAILY Simvastatin Unkown 20 mg PO TUTHSA Discharge Medication List Atropine Ophth Soln 1% 5Ml [Isopto Atropine 1% 5Ml] 2 drops PO Q4HR PRN #1 bottle 05/24/17 [Rx] LORazepam ORAL CONC [Ativan Intensol] 2 mg PO Q4HR PRN #30 ml 05/24/17 [Rx] MORPHINE ORAL CHRISTIANO CONC 20mg/mL [Roxanol Oral Soln Conc 20MG/ML] 5 mg PO Q4H PRN #30 ml 05/24/17 [Rx] Follow up Appointment(s)/Referral(s): Travis Williamson MD [Primary Care Provider] - 1-2 days [facility] Nurse, [NON-STAFF] - 1 Week
[2017-05-24 18:13] VITALS: RESP 17
== END 2017-05-24 11:34 | disposition expired | DRG 435 ==
LOC: EC 00:03 → 4MS4W 02:09 → 6ICU 05:33 → 4MS4W 05-24 19:18 → UNDODISIN 05-24 22:14
PROVIDERS: ADMIT Internal Medicine Geriatric Medicine; ATTEND Internal Medicine Geriatric Medicine
PROC: 0DB98ZX Excision of Duodenum, Via Natural or Artificial Opening Endoscopic, Diagnostic (ICD-10-PCS; principal; 2017-05-22 10:35)
DX: C25.9 Malignant neoplasm of pancreas, unspecified (principal); K83.1 Obstruction of bile duct; N17.9 Acute kidney failure, unspecified; C79.9 Secondary malignant neoplasm of unspecified site; D62 Acute posthemorrhagic anemia; K26.9 Duodenal ulcer, unspecified as acute or chronic, without hemorrhage or perforation; E78.5 Hyperlipidemia, unspecified; F31.9 Bipolar disorder, unspecified; K59.00 Constipation, unspecified; N40.0 Benign prostatic hyperplasia without lower urinary tract symptoms; Z51.5 Encounter for palliative care; Z79.899 Other long term (current) drug therapy
CPT/HCPCS: 36415; 43239; 71045; 71046; 74177; 74181; 80048; 80053; 81003; 82150; 82378; 83690; 83735; 84100; 84484; 85025; 85027; 85610; 85730; 86301; 86850; 86900; 86901; 86920; 88305; 93005; 96361; 96374; 96375; 99285

== ENCOUNTER 2017-05-24 11:34 | Inpatient (IN) | payer OTHER | END 2017-05-24 22:14 | disposition E | DRG 435 | LOC: 4MS4W 11:34 | PROVIDERS: ADMIT Family Medicine; ATTEND Family Medicine | DX: C25.9 Malignant neoplasm of pancreas, unspecified (principal); K26.4 Chronic or unspecified duodenal ulcer with hemorrhage; N17.9 Acute kidney failure, unspecified; C79.9 Secondary malignant neoplasm of unspecified site; D62 Acute posthemorrhagic anemia; Z66 Do not resuscitate; Z51.5 Encounter for palliative care; F31.9 Bipolar disorder, unspecified; E78.5 Hyperlipidemia, unspecified; N40.0 Benign prostatic hyperplasia without lower urinary tract symptoms ==